=== PATIENT | male | born 1950 | race African-American/Black ===

== ENCOUNTER → 2018-05-06 13:21 | Outpatient (CLI) | payer MEDICARE, MEDICAID, SELFPAY ==
[2018-05-06 14:18] LABS: Basophils # 0.1 K/mm3 (0-0.2); Basophils % 0.5 % (0.1-2.0); Eosinophils # 0.3 K/mm3 (0.0-0.4); Eosinophils % 3.4 % (0.1-12.0); Hematocrit 42.8 % (42.0-52.0); Hemoglobin 12.5 g/dL (14.1-18.0); Lymphocytes # 2.1 K/mm3 (0.7-4.5); Lymphocytes % 21.4 K/mm3 (10-50); Mean Corpuscular HGB Conc 29.2 g/dL (31.8-35.4); Mean Corpuscular Hemoglobin 25.6 pg (27.0-31.2); Mean Corpuscular Volume 87.6 fl (80-94); Mean Platelet Volume 8.6 fl (7.4-10.4); Monocytes # 0.4 K/mm3 (0.1-1.0); Monocytes % 3.6 % (1.7-9.3); Neutrophils # 7.1 K/mm3 (1.8-7.8); Neutrophils % 71.1 % (37.0-80.0); Platelet Count 234 K/mm3 (142-424); Red Blood Count 4.88 M/mm3 (4.60-6.20); Red Cell Distribution Width 13.3 % (11.5-17.5); White Blood Count 9.9 K/mm3 (4.8-10.8)
[2018-05-06 18:02] LABS: Alanine Aminotransferase 37 U/L (12-78); Albumin Level 3.1 gm/dL (3.4-5.0); Albumin/Globulin Ratio 0.8 (1.1-1.8); Alkaline Phosphatase 76 U/L (46-116); Anion Gap 5.1 mEq/L (5-15); Aspartate Amino Transferase 33 U/L (15-37); Bilirubin,Total 0.6 mg/dL (0.2-1.0); Blood Urea Nitrogen 30 mg/dL (7-18); Calcium 8.5 mg/dL (8.5-10.1); Carbon Dioxide 28 mmol/L (21.0-32.0); Chloride 104 mmol/L (98-107); Creatinine,Serum 1.75 mg/dL (0.70-1.30); Estimated Glomerular Filt Rate 39 ml/min (>60); GFR (African American) 47 ML/MIN (>60); Globulin 3.9 gm/dl (1.3-3.2); Glucose 98 mg/dL (74-106); Potassium 4.1 mmoL/L (3.5-5.1); Sodium 133 mmol/L (136-145)
== END ==
PROVIDERS: Visit Provider Internal Medicine Adolescent Medicine
DX: I50.42 Chronic combined systolic (congestive) and diastolic (congestive) heart failure (principal)
CPT/HCPCS: 36415; 80053; 85025

== ENCOUNTER 2018-06-29 07:35 | Inpatient (IN) ==
[2018-06-29 07:50] LABS: Basophils # 0.1 K/mm3 (0-0.2); Basophils % 0.7 % (0.1-2.0); Eosinophils # 0.5 K/mm3 (0.0-0.4); Eosinophils % 3.7 % (0.1-12.0); Hematocrit 40.4 % (42.0-52.0); Hemoglobin 12.3 g/dL (14.1-18.0); Lymphocytes # 6.7 K/mm3 (0.7-4.5); Lymphocytes % 50.9 K/mm3 (10-50); Mean Corpuscular HGB Conc 30.4 g/dL (31.8-35.4); Mean Corpuscular Hemoglobin 28.3 pg (27.0-31.2); Mean Corpuscular Volume 93.1 fl (80-94); Mean Platelet Volume 7.6 fl (7.4-10.4); Monocytes # 0.7 K/mm3 (0.1-1.0); Monocytes % 5.1 % (1.7-9.3); Neutrophils # 5.2 K/mm3 (1.8-7.8); Neutrophils % 39.6 % (37.0-80.0); Platelet Count 192 K/mm3 (142-424); Red Blood Count 4.34 M/mm3 (4.60-6.20); Red Cell Distribution Width 14.4 % (11.5-17.5); White Blood Count 13.2 K/mm3 (4.8-10.8)
[2018-06-29 07:55] LABS: Activated Partial Thrombo Time 28.5 seconds (23.6-34.0); INR 1.01 (0.9-1.1); Prothrombin Time 10.4 seconds (9.4-11.8)
--- NOTE | 2018-06-29 07:57 | Emergency Department Note ---
ED Disposition Clinical Impression: NSTEMI (non-ST elevated myocardial infarction), Lactic acidemia, Hypoxia, Hyperglycemia CHF exacerbation Qualifiers: Heart failure type: systolic Qualified Code(s): I50.23 - Acute on chronic systolic (congestive) heart failure Acute renal failure Qualifiers: Acute renal failure type: unspecified Qualified Code(s): N17.9 - Acute kidney failure, unspecified Disposition: Still a Patient Condition on Discharge: Critical Time of Disposition: 08:40 - Critical Care Critical Care Time: Yes Attestation: On 06/29/18, the high probability of a clinically significant, sudden or life threatening deterioration of the following system(s) required my full and direct attention, intervention and personal management. The time I documented below is in addition to time spent performing reported procedures but includes the following listed in this critical care notation. Total Critical Care Time: 90 Vital system(s) involved:: Circulatory Failure, Respiratory Failure My critical care processes included: Assessment & monitoring of V/S, Initial and Re-exams, Data Review/Interpretation, Coordinating Care, Medication Orders and management, Documentation Medical Decision Making - Medical Records Medical records reviewed: Yes: I reviewed the patient's medical records. - [place] Inquiry Pt receiving controlled substance: No Vital Signs: 06/29/18 07:36 06/29/18 07:45 06/29/18 07:51 Temperature 98.6 F Temperature Source Oral Pulse Rate [Apical] 62 62 55 L Respiratory Rate 30 H 30 H 32 H Blood Pressure [Right Arm] 215/100 199/113 187/103 Blood Pressure Mean [Right Arm] 138 141 131 Blood Pressure Source [Right Arm] Automatic Cuff Automatic Cuff Automatic Cuff Blood Pressure Position [Right Arm] Sitting Sitting Sitting 02 Sat by Pulse Oximetry 68 L 100 100 Oxygen Delivery Method Nasal Cannula Non-Rebreather Non-Rebreather Oxygen Flow Rate (LPM) 3 15 15 06/29/18 08:06 06/29/18 08:30 06/29/18 09:23 Temperature Temperature Source Pulse Rate [Apical] 67 62 60 Respiratory Rate 30 H 30 H 24 Blood Pressure [Right Arm] 166/84 146/70 142/82 Blood Pressure Mean [Right Arm] 111 95 102 Blood Pressure Source [Right Arm] Automatic Cuff Automatic Cuff Automatic Cuff Blood Pressure Position [Right Arm] Sitting Sitting 02 Sat by Pulse Oximetry 97 96 98 Oxygen Delivery Method Non-Rebreather Non-Rebreather Venturi Mask Oxygen Flow Rate (LPM) 06/29/18 09:30 06/29/18 10:00 Temperature Temperature Source Pulse Rate [Apical] 59 L 59 L Respiratory Rate 28 H 22 Blood Pressure [Right Arm] 150/79 147/85 Blood Pressure Mean [Right Arm] 102 105 Blood Pressure Source [Right Arm] Automatic Cuff Automatic Cuff Blood Pressure Position [Right Arm] Sitting Sitting 02 Sat by Pulse Oximetry 98 98 Oxygen Delivery Method Non-Rebreather Venturi Mask Oxygen Flow Rate (LPM) - Lab Data Lab results reviewed: Yes: I reviewed the patient's lab results. Lab Results 06/29/18 07:35: WBC 13.2 H, RBC 4.34 L, Hgb 12.3 L, Hct 40.4 L, MCV 93.1, MCH 28.3, MCHC 30.4 L, RDW 14.4, Plt Count 192, MPV 7.6, Neut % (Auto) 39.6, Lymph % (Auto) 50.9 H, [place] % (Auto) 5.1, Eos % (Auto) 3.7, Baso % (Auto) 0.7, Neut # (Auto) 5.2, Lymph # (Auto) 6.7 H, [place] # (Auto) 0.7, Eos # (Auto) 0.5 H, Baso # (Auto) 0.1, Total Counted 100, Neutrophils % (Manual) 37 L, Lymphocytes % ( Manual) 60 H, Monocytes % (Manual) 3, Platelet Estimate Normal, Helmet Cells 1+ , Acanthocytes (Spur) 1+ 06/29/18 07:35: PT 10.4, INR 1.01, APTT 28.5, D-Dimer 783 H* 06/29/18 07:35: Sodium 141, Potassium 3.5, Chloride 105, Carbon Dioxide 23, Anion Gap 16.5 H, BUN 28 H, Creatinine 1.91 H, Estimated Creat Clear 45, Estimated GFR 35 L, Est GFR ( Amer) 43 L, Glucose 308 H, Calcium 8.2 L, Total Bilirubin 0.3, AST 44 H, ALT 38, Alkaline Phosphatase 95, CK-MB (CK-2) 2.9 , Total Protein 7.0, Albumin 2.9 L, Globulin 4.1 H, Albumin/Globulin Ratio 0.7 L 06/29/18 07:35: B-Natriuretic Peptide 1320 H 06/29/18 07:35: TSH 3.99 H 06/29/18 07:35: Troponin I 0.28 H 06/29/18 07:35: Amylase 134 H, Lipase 237 06/29/18 07:35: Hemoglobin A1c 5.3 06/29/18 07:40: Specimen Source Right radial, O2 % 100%, ABG pH 7.18 L*, ABG pCO2 39.0, ABG pO2 141.1 H, ABG HCO3 14.3 L, ABG Total CO2 15.5 L, ABG O2 Saturation 98, ABG Base Excess -14.0 L, Primitivo Test Acceptable 06/29/18 08:10: Lactate 7.6 H 06/29/18 10:25: Troponin I 0.29 H Result diagrams: 06/29/18 07:35 06/29/18 07:35 Orders (Tests/Meds): ED MEDICATIONS Generic Name Dose Route Start Last Admin Trade Name Freq PRN Reason Stop Dose Admin Aspirin 81 mg 06/30/18 09:00 Aspirin 81mg Chewable Tablet PO 07/30/18 08:59 DAILY [facility] Atorvastatin Calcium 40 mg 06/30/18 09:00 Lipitor 40mg Tablet PO 07/30/18 08:59 DAILY [facility] Carvedilol 12.5 mg 06/30/18 09:00 Coreg 12.5mg Tablet PO 07/30/18 08:59 DAILY [facility] Clopidogrel Bisulfate 75 mg 06/30/18 09:00 Plavix 75mg Tablet PO 07/30/18 08:59 DAILY [facility] Enoxaparin Sodium 80 mg 06/29/18 21:00 Lovenox 80mg/0.8ml Syringe SQ 07/29/18 20:59 Q12H [facility]COM Furosemide 40 mg 06/29/18 21:00 Lasix 40mg/4ml Vial IV 07/29/18 20:59 Q12 [facility]COM Lisinopril 10 mg 06/30/18 09:00 Zestril 10mg Tablet PO 07/30/18 08:59 DAILY [facility] Nitroglycerin 0.4 mg 06/29/18 10:23 Nitrostat 0.4mg Sl Tablet SL 06/30/18 07:36 Q5MINP PRN Chest Pain Potassium Chloride 40 meq 06/29/18 12:30 Klor-Con 20meq Tablet PO 07/29/18 12:29 BID MALCOM Discontinued Medications Generic Name Dose Route Start Last Admin Trade Name Freq PRN Reason Stop Dose Admin Clopidogrel Bisulfate 300 mg 06/29/18 08:33 06/29/18 09:00 Plavix 300mg Tablet PO 06/29/18 08:34 300 mg ONCE ONE Administration Enalaprilat 1.25 mg 06/29/18 07:36 06/29/18 07:37 Vasotec 2.5mg/2ml Vial IV 06/29/18 07:37 1.25 mg ONCE ONE Administration Enoxaparin Sodium 80 mg 06/29/18 08:45 06/29/18 09:19 Lovenox 80mg/0.8ml Syringe SQ 07/29/18 08:44 80 mg Q12H MALCOM Administration Furosemide 40 mg 06/29/18 07:39 06/29/18 07:41 Lasix 40mg/4ml Vial IV 06/29/18 07:40 40 mg ONCE ONE Administration Furosemide 20 mg 06/29/18 08:33 06/29/18 09:00 Lasix 20mg/2ml Vial IV 06/29/18 08:34 20 mg ONCE ONE Administration Nitroglycerin 0.4 mg 06/29/18 07:36 Nitrostat 0.4mg Sl Tablet SL 06/30/18 07:36 Q5MINP PRN Chest Pain ORDERS Category Date Time Status Consult to Cardiology [CONS] Routine Cons 06/29/18 10:23 Active Troponin I Q3H Lab 06/29/18 16:23 Ordered Troponin I Q3H Lab 06/29/18 19:23 Ordered Troponin I Q3H Lab 06/29/18 22:23 Ordered Blood Culture Stat Micro 06/29/18 08:10 Received - Radiology Data #1 Image(s): Chest Image Reviewed: Yes I reviewed the patient's radiology results Preliminary Findings: Abnormal Cardiomegaly, increased interstitial markings consistent with pulmonary edema - ECG Data Tracing #1 I reviewed this ECG and interpreted as documented below: Deep Q waves, consistent with LVH, no acute ischemic changes, heart rate 98 ECG normal with no acute: arrhythmias, ischemia, conduction abnormalities, chamber hypertrophy Normal Sinus Rhythm: Yes - Physician Consults Physician Consulted: Dr Fragoso Time: 08:45 Reason -: Admission, Pt condition Comment/Response: Agreeable with admission, agreeable with management so far. Additional Consult: Judah Crocker , c/o Dr Solomon Reason -: Admission, Pt condition, Cardiology Eval/Care Comment/Response: Agreeable with admission, agreeable with management so far. Judah feels that the elevated troponin must be due to the congestive heart failure, rather than a non-STEMI. He will discuss case in detail with splicer apprentice, Dr. Solomon, in the well will obtain a 2D echo, and provide patient with Lovenox, Plavix, nitrates, beta-elijah coverage. - Reevaluation(s) Time: 08:30 Reevaluation #1: Significantly better, pulse ox on nonrebreather mask is 90%, patient denies any further shortness of breath, able to now diuresis. Twice patient of plan to hospitalize him, and obtain consultation with splicer apprentice. Resp/SOB HPI - General Chief Complaint: Shortness of Breath/Dyspnea Stated Complaint: SOA Time Seen by Provider: 06/29/18 07:36 Mode of Arrival: EMS Source of Information: Patient, Relative, EMS Limitations: No Limitations Description of Symptoms (Recalled from ER Triage Doc. by RN): Pt was found laying in [facility] parking lot. Pt c/o SOA that began lastnight and pain in his chest. - History of Present Illness Patient is a 67-year-old Afro-[place] male that called his daughter around 6: 45 AM complaining with sudden onset of shortness of breath, and requesting her to the to the closest emergency room for medical treatment. By the time his daughter got dressed up and arrived at his apartment the patient was found unresponsive in the parking lot, trying to go to the emergency room on his own. A bystander called the ambulance, who found him unresponsive, hypoxic, brought him to the emergency room. On arrival to the emergency report shows restless, profoundly diaphoretic, pulse ox on room air was 68%, without patient being previously given any oxygen. Aspirin was given on route to the hospital, by EMS personnel. The daughter who arrived later advised that her father has a history of congestive heart failure, and he has been having "a hard time with his blood pressure which has been constantly high". Approximately 2 months ago the patient was transferred from [facility] to because of similar symptoms, and he was diagnosed with CHF at where he was diuresed. Patient has previous heart stents, last one was 2 years ago. MD Complaint: shortness of breath Onset (ago): hour(s) Context: elevated blood glucose Severity: severe Consistency/Duration: constant Relieving factors: oxygen Known history of: congestive heart failure Associated symptoms: orthopnea - Related Data Home oxygen amount: none Home Medications Medication Instructions Recorded Confirmed Aspirin 81 mg PO DAILY 06/29/18 06/29/18 Atorvastatin Calcium [Atorvastatin 40 mg PO DAILY 06/29/18 06/29/18 40mg Tab] Carvedilol [Carvedilol 12.5mg Tab] 12.5 mg PO BID 06/29/18 06/29/18 Furosemide [Furosemide 40MG tAB] 40 mg PO DAILY 06/29/18 06/29/18 Lisinopril [Lisinopril 10mg Tab] 10 mg PO DAILY 06/29/18 06/29/18 Allergies Allergy/AdvReac Type Severity Reaction Status Date / Time No Known Allergies Allergy Verified 04/22/18 06:49 [facility] History I have reviewed the patient's past medical history: Yes - Social History Smoking Status: Current every day smoker Tobacco Type: cigarettes Alcohol Intake: never ROS Obtained: Yes All systems reviewed & no additional complaints, Yes Systems reviewed as appropriate & no additional complaints - Respiratory Respiratory: Yes as per HPI, Yes dyspnea Physical Exam - General General appearance: alert, anxious, in distress (severe) - Head Head exam: atraumatic, normocephalic, normal inspection - Neck Neck exam: Present: normal inspection, full ROM, trachea midline. Absent: meningismus, lymphadenopathy - Chest Chest inspection: Present: normal inspection, symmetric chest wall rise. Absent : tenderness - Respiratory Respiratory exam: Present: respiratory distress (severe), wheezes - Cardiovascular Cardiovascular exam: Present: tachycardia, JVD - Abdominal Exam Abdominal exam: Present: soft, normal bowel sounds. Absent: distention, tenderness, guarding - Extremities Exam Extremities exam: Present: normal inspection, full ROM, normal capillary refill. Absent: calf tenderness - Back Exam Back exam: Present: normal inspection. Absent: tenderness - Neurological Exam Neurological exam: Present: alert, oriented X3, CN II-XII intact, normal gait. Absent: motor sensory deficit - Psychiatric Psychiatric exam: Present: depressed, flat affect - Skin Skin exam: Present: warm, intact, normal color, diaphoresis
[2018-06-29 07:58] LABS: Amylase 134 U/L (25-125); Lipase 237 u/L (73-393)
[2018-06-29 08:03] LABS: ABG HCO3 14.3 mmhg (22.0-26.0); ABG Oxygen Saturation 98 % (90-100); ABG PO2 141.1 mmhg (80-100); ABG TCO2 15.5 mmhg (23-27)
[2018-06-29 08:05] LABS: Allen's Test Acceptable; Oxygen 100% %
[2018-06-29 08:07] LABS: ABG PH 7.18 mmol/L (7.35-7.45)
[2018-06-29 08:09] LABS: Albumin Level 2.9 gm/dL (3.4-5.0); Albumin/Globulin Ratio 0.7 (1.1-1.8); Anion Gap 16.5 mEq/L (5-15); Bilirubin,Total 0.3 mg/dL (0.2-1.0); Calcium 8.2 mg/dL (8.5-10.1); Globulin 4.1 gm/dl (1.3-3.2); Potassium 3.5 mmoL/L (3.5-5.1)
[2018-06-29 08:21] LABS: Lymphocytes % 60 % (10-50); Monocytes % 3 % (2-9); Neutrophils % 37 % (42-76); Total Cells Counted 100
[2018-06-29 08:22] LABS: Helmet Cells 1+
--- NOTE | 2018-06-29 09:27 | Consult Report ---
History of Present Illness Consult date: 06/29/18 Requesting physician: Triston Fragoso Consult reason: shortness of breath Chief complaint: SOA, CHF Additional Medical History:: 1. Coronary artery disease A. History of coronary artery stenting in 2009 and 2014 at [facility] in [place], [place] 2. Malignant hypertension 3. Hyperlipidemia 4. Tobacco use, previously heavy use up to 3 packs per day A. COPD History of present illness: 67-year-old black male with history of coronary artery disease, malignant hypertension and tobacco use presented to the emergency department via EMS for worsening shortness of breath. Patient and his daughter relate 2 weeks of increasing shortness of breath despite increasing Lasix and increasing Coreg therapy for hypertension. Patient relates this a.m. calling his daughter to take him to the hospital for shortness of breath. When she arrived she found him out in the parking lot unresponsive. EMS had already been called and transported patient to the hospital. Patient has improved with supplemental oxygen and IV diuretics. Chest x-ray shows evidence of congestive heart failure with elevated BNP at 1300. Initial troponin is elevated at 0.28 with abnormal EKG showing evidence of LVH with repolarization changes. Similar EKG noted in 04/2018 at which time the patient was transferred to [facility]. Echocardiogram performed during that hospital stay showed a left ventricular ejection fraction of 40%. Patient states he was diuresed and blood pressure medications were adjusted and he was sent home after 2 days. No cardiac catheterization performed. Patient was diagnosed with a non-ST elevation MA secondary to hypertension/hypertensive heart disease and CHF. Cardiology consulted for evaluation recommendations. [facility] History - *Social History Smoking Status: Current every day smoker Tobacco Type: cigarettes Alcohol Intake: never Meds Home Medications Medication Instructions Recorded Confirmed Type Aspirin 81 mg PO DAILY 06/29/18 06/29/18 History Atorvastatin Calcium [Atorvastatin 40 mg PO DAILY 06/29/18 06/29/18 History 40mg Tab] Carvedilol [Carvedilol 12.5mg Tab] 12.5 mg PO BID 06/29/18 06/29/18 History Furosemide [Furosemide 40MG tAB] 40 mg PO DAILY 06/29/18 06/29/18 History Lisinopril [Lisinopril 10mg Tab] 10 mg PO DAILY 06/29/18 06/29/18 History Allergies Allergy/AdvReac Type Severity Reaction Status Date / Time No Known Allergies Allergy Verified 04/22/18 06:49 Review of Systems - *Cardiovascular Reports shortness of breath, Reports shortness of breath with activity, Denies chest pain - *Respiratory Reports shortness of breath, Reports shortness of breath with activity - *Gastrointestinal Denies abdominal pain - *Musculoskeletal Denies back pain Exam Vital signs and Labs for Last 24 Hours: Temp Pulse Resp BP Pulse Ox 98.6 F 62 30 H 146/70 96 06/29/18 07:36 06/29/18 08:30 06/29/18 08:30 06/29/18 08:30 06/29/18 08:30 Laboratory Results - last 24 hr 06/29/18 07:35: WBC 13.2 H, RBC 4.34 L, Hgb 12.3 L, Hct 40.4 L, MCV 93.1, MCH 28.3, MCHC 30.4 L, RDW 14.4, Plt Count 192, MPV 7.6, Neut % (Auto) 39.6, Lymph % (Auto) 50.9 H, [place] % (Auto) 5.1, Eos % (Auto) 3.7, Baso % (Auto) 0.7, Neut # (Auto) 5.2, Lymph # (Auto) 6.7 H, [place] # (Auto) 0.7, Eos # (Auto) 0.5 H, Baso # (Auto) 0.1, Total Counted 100, Neutrophils % (Manual) 37 L, Lymphocytes % ( Manual) 60 H, Monocytes % (Manual) 3, Platelet Estimate Normal, Helmet Cells 1+ , Acanthocytes (Spur) 1+ 06/29/18 07:35: PT 10.4, INR 1.01, APTT 28.5, D-Dimer 783 H* 06/29/18 07:35: Sodium 141, Potassium 3.5, Chloride 105, Carbon Dioxide 23, Anion Gap 16.5 H, BUN 28 H, Creatinine 1.91 H, Estimated Creat Clear 45, Estimated GFR 35 L, Est GFR ( Amer) 43 L, Glucose 308 H, Calcium 8.2 L, Total Bilirubin 0.3, AST 44 H, ALT 38, Alkaline Phosphatase 95, CK-MB (CK-2) 2.9 , Total Protein 7.0, Albumin 2.9 L, Globulin 4.1 H, Albumin/Globulin Ratio 0.7 L 06/29/18 07:35: B-Natriuretic Peptide 1320 H 06/29/18 07:35: TSH 3.99 H 06/29/18 07:35: Troponin I 0.28 H 06/29/18 07:35: Amylase 134 H, Lipase 237 06/29/18 07:35: Hemoglobin A1c 5.3 06/29/18 07:40: Specimen Source Right radial, O2 % 100%, ABG pH 7.18 L*, ABG pCO2 39.0, ABG pO2 141.1 H, ABG HCO3 14.3 L, ABG Total CO2 15.5 L, ABG O2 Saturation 98, ABG Base Excess -14.0 L, Primitivo Test Acceptable 06/29/18 08:10: Lactate 7.6 H I & O for Last 24 hours: Intake & Output 06/26/18 06/27/18 06/28/18 06/29/18 11:59 11:59 11:59 11:59 Weight 190 lb - *Routine Neck Exam Present: JVD. Absent: carotid bruit - *Routine Respiratory Exam Present: decreased breath sounds, rales - *Routine Cardiovascular Exam Present: RRR. Absent: murmur, gallop, rubs - *Routine Abdominal Exam Absent: tenderness, guarding - *Routine Extremities Exam Absent: edema - *Routine Neurological Exam Present: alert, oriented X3, moving all extremities Assessment and Plan (1) CHF exacerbation Current visit: Yes Status: Acute Qualifiers: Heart failure type: systolic Qualified Code(s): I50.23 - Acute on chronic systolic (congestive) heart failure Category: Medical Code(s): I50.9 - Heart failure, unspecified (2) Hypoxia Current visit: Yes Status: Acute Category: Medical Code(s): R09.02 - Hypoxemia (3) Lactic acidemia Current visit: Yes Status: Acute Category: Medical Code(s): E87.2 - Acidosis (4) Elevated troponin Current visit: No Status: Acute Category: Medical Code(s): R74.8 - Abnormal levels of other serum enzymes (5) Hypertensive crisis Current visit: No Status: Acute Category: Medical Code(s): I16.9 - Hypertensive crisis, unspecified - Assessment and plan all Dx Assessment and Plan for all problems:: 1. Acute respiratory distress with hypoxemia and lactic acidemia secondary to congestive heart failure with malignant hypertension. Improved with IV diuretic therapy and oxygen via nonrebreather. 2. Elevated troponin secondary to above. Continue aspirin and Plavix therapy. 3. Known cardiomyopathy felt to be a combination of previous MA and hypertension with LVH. Obtain echocardiogram. 4. Elevated d-dimer, likely secondary to above, continue Lovenox therapy. 5. Further recommendations to follow
--- NOTE | 2018-06-29 10:38 | Pharmacy Consult Notes ---
[facility] Pharmacy VTE Monitoring - Patient Demographics Admission date: 06/29/18 Report Date: 06/29/18 Time: 10:38 Allergies/Adverse Reactions: Patient Allergies No Known Allergies Allergy (Verified 04/22/18 06:49) Height: 1.88 m Weight: 86.183 kg Patient Problems: Current Active Problems CHF exacerbation (Acute) NSTEMI (non-ST elevated myocardial infarction) (Acute) Lactic acidemia (Acute) Hypoxia (Acute) Acute renal failure (Acute) Hyperglycemia (Acute) - VTE Risk Labs: VTE Related Lab Results Hgb 12.3 g/dL (14.1-18.0) L 06/29/18 07:35 Hct 40.4 % (42.0-52.0) L 06/29/18 07:35 Plt Count 192 K/mm3 (142-424) 06/29/18 07:35 PT 10.4 seconds (9.4-11.8) 06/29/18 07:35 INR 1.01 (0.9-1.1) 06/29/18 07:35 APTT 28.5 seconds (23.6-34.0) 06/29/18 07:35 BUN 28 mg/dL (7-18) H 06/29/18 07:35 Creatinine 1.91 mg/dL (0.70-1.30) H 06/29/18 07:35 Estimated Creat Clear 45 mL/min (0-300) 06/29/18 07:35 - Prophylaxis VTE Prophylaxis Ordered?: Yes Types of VTE Prophylaxis: Pharmacological Pharmacologic Type: Enoxaparin - VTE Diagnosis Confirmed Treatment or plan recommended: Continue Current Treatment
--- NOTE | 2018-06-29 14:16 | H&P/Discharge Summary ---
General - General Admission date:: 06/29/18 Discharge date: 06/29/18 *Admission Date: 06/29/18 *Chief complaint: Dyspnea/syncope *History of present illness: 67-year-old -[place] male with history of pulmonary edema with a significant history 2 months ago flash pulmonary edema requiring transfer to tertiary care institution. Excellent recovery and has done well over the past couple of months with diuretics, atorvastatin and lisinopril. Early this morning began to feel suddenly dyspneic, very weak, called his daughter, who by the time she got to his apartment he was collapsed in the parking lot. Brought to the emergency department where he was acidotic, high lactic levels, significant pulmonary edema on exam and by x-ray criteria. Cardiology was consulted and recommended admission here with high-dose IV diuresis and the patient was admitted to stepdown unit at the hospital. [facility] History I have reviewed the patient's past medical history: Yes Medical History: Reports:: Congestive Heart Failure, Hyperlipidemia, Hypertension, Myocardial Infarction Denies:: Cancer, Diabetes Mellitus Type 1, Diabetes Mellitus Type 2, Internal Pacemaker, MRSA Other Surgeries: No: Pacemaker Amputation: No Fractures: No - *Social History Educational Level: Completed High School Smoking Status: Current every day smoker Tobacco Type: cigarettes Alcohol Intake: never Occupational Status: retired, disabled - Psychiatric History Expresses thoughts of harming self/others: None Suicide Plan Description: No Plan Review of Systems - Review of Systems Review of systems:: pertinent systems reviewed and negative unless documented below - Constitutional Denies anorexia, Denies body ache(s), Denies excessive sweating, Denies fever(s) - Eyes Denies blind spots, Denies blurry vision - ENT Denies abnormal hearing - *Cardiovascular Reports shortness of breath, Reports shortness of breath with activity, Reports leg swelling, Denies chest pain, Denies chest pain at rest, Denies excessive sweating, Denies irregular heart rhythm - *Respiratory Reports shortness of breath, Reports shortness of breath with activity, Denies change in phlegm color, Denies chest congestion, Denies cough, Denies coughing up blood, Denies pain on inspiration - *Gastrointestinal Denies abdominal pain, Denies belching, Denies coffee ground vomit, Denies constipation, Denies difficulty swallowing - *Genitourinary Denies difficulty urinating, Denies painful urination - *Neurologic Reports dizziness, Reports weakness - Endocrine Denies cold intolerance, Denies excessive sweating, Denies rapid, pounding, or irregular heartbeat Exam Vital signs and Labs for Last 24 Hours: Temp Pulse Resp BP Pulse Ox 97.8 F 57 L 22 152/87 100 06/29/18 10:40 06/29/18 11:15 06/29/18 10:40 06/29/18 10:40 06/29/18 11:15 Laboratory Results - last 24 hr 06/29/18 07:35: WBC 13.2 H, RBC 4.34 L, Hgb 12.3 L, Hct 40.4 L, MCV 93.1, MCH 28.3, MCHC 30.4 L, RDW 14.4, Plt Count 192, MPV 7.6, Neut % (Auto) 39.6, Lymph % (Auto) 50.9 H, [place] % (Auto) 5.1, Eos % (Auto) 3.7, Baso % (Auto) 0.7, Neut # (Auto) 5.2, Lymph # (Auto) 6.7 H, [place] # (Auto) 0.7, Eos # (Auto) 0.5 H, Baso # (Auto) 0.1, Total Counted 100, Neutrophils % (Manual) 37 L, Lymphocytes % ( Manual) 60 H, Monocytes % (Manual) 3, Platelet Estimate Normal, Helmet Cells 1+ , Acanthocytes (Spur) 1+ 06/29/18 07:35: PT 10.4, INR 1.01, APTT 28.5, D-Dimer 783 H* 06/29/18 07:35: Sodium 141, Potassium 3.5, Chloride 105, Carbon Dioxide 23, Anion Gap 16.5 H, BUN 28 H, Creatinine 1.91 H, Estimated Creat Clear 45, Estimated GFR 35 L, Est GFR ( Amer) 43 L, Glucose 308 H, Calcium 8.2 L, Total Bilirubin 0.3, AST 44 H, ALT 38, Alkaline Phosphatase 95, CK-MB (CK-2) 2.9 , Total Protein 7.0, Albumin 2.9 L, Globulin 4.1 H, Albumin/Globulin Ratio 0.7 L 06/29/18 07:35: B-Natriuretic Peptide 1320 H 06/29/18 07:35: TSH 3.99 H 06/29/18 07:35: Troponin I 0.28 H 06/29/18 07:35: Amylase 134 H, Lipase 237 06/29/18 07:35: Hemoglobin A1c 5.3 06/29/18 07:40: Specimen Source Right radial, O2 % 100%, ABG pH 7.18 L*, ABG pCO2 39.0, ABG pO2 141.1 H, ABG HCO3 14.3 L, ABG Total CO2 15.5 L, ABG O2 Saturation 98, ABG Base Excess -14.0 L, Primitivo Test Acceptable 06/29/18 08:10: Lactate 7.6 H 06/29/18 10:25: Troponin I 0.29 H 06/29/18 12:04: POC Glucose 108 06/29/18 12:27: Lactate 1.3 06/29/18 12:27: Troponin I 0.31 H 06/29/18 12:27: Magnesium 2.2 I & O for Last 24 hours: Intake & Output 06/27/18 06/28/18 06/29/18 06/30/18 11:59 11:59 11:59 11:59 Output Total 600 / 600 Balance -600 / -600 Weight 193 lb 4 oz Narrative: Examination of the telemetry unit after admission and significant diarrhea since revealed a very pleasant black male who is awake, alert, oriented 3. 100% oxygen saturation on 2 L nasal cannula. Heart rate in 60s, sinus rhythm. Blood pressure acceptable. Good distal perfusion and good capillary refill. Heart rate regular with slightly more quiet S1 sound in the S2 sound, no murmurs. Abdomen soft and nontender. Lungs with minimal rhonchi in both bases but improved over recorded ER exam. Wolf catheter draining copious amounts of clear yellow urine. Hospital Course Hospital Course: Patient was admitted, diuresed, significant improvement with aggressive diuresis with improved lactate levels. Markedly improved oxygenation and Echocardiogram showed evidence of mitral valve vegetation with verbal cardiology report from Dr. Tsai. Cardiology service felt that patient, given his significant pulmonary edema and need for workup of this valvular disease would be best served at a tertiary care center and I called and arranged transfer to the cardiac service at with Dr Matthews. Blood cultures were done before transfer. Patient has no history of IV drug abuse, no recent fevers and his white count is currently normal. Results Labs on day of discharge: Labs from last 24 hours 06/29/18 06/29/18 06/29/18 12:27 12:27 12:27 WBC RBC Hgb Hct MCV MCH MCHC RDW Plt Count MPV Neut % (Auto) Lymph % (Auto) Houghton % (Auto) Eos % (Auto) Baso % (Auto) Neut # (Auto) Lymph # (Auto) Houghton # (Auto) Eos # (Auto) Baso # (Auto) Total Counted Neutrophils % (Manual) Lymphocytes % (Manual) Monocytes % (Manual) Platelet Estimate Helmet Cells Acanthocytes (Spur) PT INR APTT D-Dimer Specimen Source O2 % ABG pH ABG pCO2 ABG pO2 ABG HCO3 ABG Total CO2 ABG O2 Saturation ABG Base Excess Primitivo Test Sodium Potassium Chloride Carbon Dioxide Anion Gap BUN Creatinine Estimated Creat Clear Estimated GFR Est GFR ( Amer) Glucose POC Glucose Hemoglobin A1c Lactate 1.3 Calcium Magnesium 2.2 Total Bilirubin AST ALT Alkaline Phosphatase CK-MB (CK-2) Troponin I 0.31 H B-Natriuretic Peptide Total Protein Albumin Globulin Albumin/Globulin Ratio Amylase Lipase TSH 06/29/18 06/29/18 06/29/18 12:04 10:25 08:10 WBC RBC Hgb Hct MCV MCH MCHC RDW Plt Count MPV Neut % (Auto) Lymph % (Auto) [place]oughton % (Auto) Eos % (Auto) Baso % (Auto) Neut # (Auto) Lymph # (Auto) [place]oughton # (Auto) Eos # (Auto) Baso # (Auto) Total Counted Neutrophils % (Manual) Lymphocytes % (Manual) Monocytes % (Manual) Platelet Estimate Helmet Cells Acanthocytes (Spur) PT INR APTT D-Dimer Specimen Source O2 % ABG pH ABG pCO2 ABG pO2 ABG HCO3 ABG Total CO2 ABG O2 Saturation ABG Base Excess Primitivo Test Sodium Potassium Chloride Carbon Dioxide Anion Gap BUN Creatinine Estimated Creat Clear Estimated GFR Est GFR ( Amer) Glucose POC Glucose 108 Hemoglobin A1c Lactate 7.6 H Calcium Magnesium Total Bilirubin AST ALT Alkaline Phosphatase CK-MB (CK-2) Troponin I 0.29 H B-Natriuretic Peptide Total Protein Albumin Globulin Albumin/Globulin Ratio Amylase Lipase TSH 06/29/18 06/29/18 06/29/18 07:40 07:35 07:35 WBC RBC Hgb Hct MCV MCH MCHC RDW Plt Count MPV Neut % (Auto) Lymph % (Auto) [place] % (Auto) Eos % (Auto) Baso % (Auto) Neut # (Auto) Lymph # (Auto) [place]oughton # (Auto) Eos # (Auto) Baso # (Auto) Total Counted Neutrophils % (Manual) Lymphocytes % (Manual) Monocytes % (Manual) Platelet Estimate Helmet Cells Acanthocytes (Spur) PT INR APTT D-Dimer Specimen Source Right radial O2 % 100% ABG pH 7.18 L* ABG pCO2 39.0 ABG pO2 141.1 H ABG HCO3 14.3 L ABG Total CO2 15.5 L ABG O2 Saturation 98 ABG Base Excess -14.0 L Primitivo Test Acceptable Sodium Potassium Chloride Carbon Dioxide Anion Gap BUN Creatinine Estimated Creat Clear Estimated GFR Est GFR ( Amer) Glucose POC Glucose Hemoglobin A1c 5.3 Lactate Calcium Magnesium Total Bilirubin AST ALT Alkaline Phosphatase CK-MB (CK-2) Troponin I B-Natriuretic Peptide Total Protein Albumin Globulin Albumin/Globulin Ratio Amylase 134 H Lipase 237 TSH 06/29/18 06/29/18 06/29/18 07:35 07:35 07:35 WBC RBC Hgb Hct MCV MCH MCHC RDW Plt Count MPV Neut % (Auto) Lymph % (Auto) [place] % (Auto) Eos % (Auto) Baso % (Auto) Neut # (Auto) Lymph # (Auto) [place] # (Auto) Eos # (Auto) Baso # (Auto) Total Counted Neutrophils % (Manual) Lymphocytes % (Manual) Monocytes % (Manual) Platelet Estimate Helmet Cells Acanthocytes (Spur) PT INR APTT D-Dimer Specimen Source O2 % ABG pH ABG pCO2 ABG pO2 ABG HCO3 ABG Total CO2 ABG O2 Saturation ABG Base Excess Primitivo Test Sodium Potassium Chloride Carbon Dioxide Anion Gap BUN Creatinine Estimated Creat Clear Estimated GFR Est GFR ( Amer) Glucose POC Glucose Hemoglobin A1c Lactate Calcium Magnesium Total Bilirubin AST ALT Alkaline Phosphatase CK-MB (CK-2) Troponin I 0.28 H B-Natriuretic Peptide 1320 H Total Protein Albumin Globulin Albumin/Globulin Ratio Amylase Lipase TSH 3.99 H 06/29/18 06/29/18 06/29/18 07:35 07:35 07:35 WBC 13.2 H RBC 4.34 L Hgb 12.3 L Hct 40.4 L MCV 93.1 MCH 28.3 MCHC 30.4 L RDW 14.4 Plt Count 192 MPV 7.6 Neut % (Auto) 39.6 Lymph % (Auto) 50.9 H [place] % (Auto) 5.1 Eos % (Auto) 3.7 Baso % (Auto) 0.7 Neut # (Auto) 5.2 Lymph # (Auto) 6.7 H [place] # (Auto) 0.7 Eos # (Auto) 0.5 H Baso # (Auto) 0.1 Total Counted 100 Neutrophils % (Manual) 37 L Lymphocytes % (Manual) 60 H Monocytes % (Manual) 3 Platelet Estimate Normal Helmet Cells 1+ Acanthocytes (Spur) 1+ PT 10.4 INR 1.01 APTT 28.5 D-Dimer 783 H* Specimen Source O2 % ABG pH ABG pCO2 ABG pO2 ABG HCO3 ABG Total CO2 ABG O2 Saturation ABG Base Excess Primitivo Test Sodium 141 Potassium 3.5 Chloride 105 Carbon Dioxide 23 Anion Gap 16.5 H BUN 28 H Creatinine 1.91 H Estimated Creat Clear 45 Estimated GFR 35 L Est GFR ( Amer) 43 L Glucose 308 H POC Glucose Hemoglobin A1c Lactate Calcium 8.2 L Magnesium Total Bilirubin 0.3 AST 44 H ALT 38 Alkaline Phosphatase 95 CK-MB (CK-2) 2.9 Troponin I B-Natriuretic Peptide Total Protein 7.0 Albumin 2.9 L Globulin 4.1 H Albumin/Globulin Ratio 0.7 L Amylase Lipase TSH DS: Diagnosis - Discharge Diagnosis (1) CHF exacerbation Status: Acute (2) Hypoxia Status: Acute (3) Lactic acidemia Status: Acute (4) Elevated troponin Status: Acute (5) Hypertensive crisis Status: Acute Discharge Medications - Medications for Discharge Home Medication List at Discharge: No Action Lisinopril [Lisinopril 10mg Tab] 10 mg PO DAILY Furosemide [Furosemide 40MG tAB] 40 mg PO DAILY Atorvastatin Calcium [Atorvastatin 40mg Tab] 40 mg PO DAILY Aspirin 81 mg PO DAILY Carvedilol [Carvedilol 12.5mg Tab] 12.5 mg PO BID Disposition Disposition: Xfer Short-Term Hosp
--- NOTE | 2018-06-29 21:26 | Cardiology Report ---
PROCEDURE: 2-D M-mode and color Doppler study INDICATIONS FOR THE TEST: Chest pain COPD Heart Murmur Tobacco Smoking Palpitations Fatigue Syncope Edema Hypertension Diabetes MellitusX Rheumatic Fever SOBXDOE Obesity Hyperlipidemia Family History HD Additional History CHF,NSTEMI PATIENT INFORMATION HEIGHT: 74 WEIGHT:190 GENDER: Male B/P:146/79 2-D/M-MODE INTERPRETATION: 2-D MEASUREMENTS OBSERVED VALUES IN CMS Right Ventricular Dimension (RVDd) 1.9 Interventricular Septum (Thickness)(IVsd) 1.2 Left Ventricular Internal Dimensions(LVIDd) 6.2 Left Ventricular Posterior Wall (Thickness)(LVPWd) 1.2 Aortic Root 4.0 Aortic Cusp Separation 2.0 Left Atrial Dimensions (LAD) 3.0 2D 1. Technically difficult study because of the patient's factor and poor acoustic windows 2. The left atrium is mildly enlarged, left ventricle is normal size, mild concentric left ventricular hypertrophy, visually estimated ejection fraction 40-45%, there is marked hypokinesis involving the mid to distal septum and anteroapical wall. 3. The right atrium and right ventricle are mildly enlarged with normal contractility. 4. The aortic valve is thickened and calcified leaflet continue to display mobility. 5. The mitral valve has dense mitral annular calcification, mitral valve leaflets are minimally thickened. 6. The tricuspid valve is grossly normal. 7. The pulmonic valve is poorly visualized. 8. No significant pericardial effusion noted. DOPPLER INTERROGATION: Doppler interrogation of the aortic, mitral and tricuspid valvular presence of mild aortic, mild mitral and tricuspid regurgitation, tricuspid and jet velocity is insufficient for calculation of the right ventricular systolic pressure, grade 1 diastolic dysfunction seen with tissue Doppler evidence of raised left atrial pressure. CONCLUSION: 1. Normal left ventricular size, mild concentric left ventricular hypertrophy, visually estimated ejection fraction 40-45% with segmental wall motion abnormality described above, grade 1 diastolic dysfunction seen with tissue Doppler evidence of raised left atrial pressure. 2. Thickened and calcified aortic valve without Doppler evidence of aortic stenosis, there is mild aortic insufficiency. 3. Mild mitral and tricuspid regurgitation 4. No significant pericardial effusion noted.
[2018-06-30 01:05] VITALS: BP 176/86
== END 2018-06-30 01:57 | disposition short-term general hospital (02) ==
LOC: ER 07:35 → 2ND 10:03
PROVIDERS: ADMIT Internal Medicine Adolescent Medicine; ATTEND Internal Medicine Adolescent Medicine

== ENCOUNTER → 2019-04-05 13:11 | Outpatient (POV) | payer MEDICARE, MEDICAID, SELFPAY ==
[2019-04-05 14:15] LABS: Basophils % 0.4 % (0.1-2.0); Eosinophils # 0.3 K/mm3 (0.0-0.4); Eosinophils % 4.8 % (0.1-12.0); Hematocrit 37.7 % (42.0-52.0); Hemoglobin 11.3 g/dL (14.1-18.0); Lymphocytes % 31.5 % (10-50); Mean Corpuscular HGB Conc 30.1 g/dL (31.8-35.4); Mean Corpuscular Hemoglobin 25.8 pg (27.0-31.2); Mean Corpuscular Volume 85.7 fl (80-94); Mean Platelet Volume 8.1 fl (7.4-10.4); Monocytes # 0.4 K/mm3 (0.1-1.0); Monocytes % 5.8 % (1.7-9.3); Neutrophils # 3.7 K/mm3 (1.8-7.8); Neutrophils % 57.5 % (37.0-80.0); Platelet Count 179 K/mm3 (142-424); Red Blood Count 4.39 M/mm3 (4.60-6.20); Red Cell Distribution Width 14.3 % (11.5-17.5); White Blood Count 6.5 K/mm3 (4.8-10.8)
[2019-04-05 15:49] LABS: Blood Urea Nitrogen 30 mg/dL (7-18); Carbon Dioxide 23 mmol/L (21.0-32.0); Chloride 106 mmol/L (98-107); Creatinine,Serum 1.79 mg/dL (0.70-1.30); Estimated Glomerular Filt Rate 38 ml/min (>60); Sodium 141 mmol/L (136-145)
[2019-04-05 15:50] LABS: Alanine Aminotransferase 34 U/L (12-78); Albumin Level 3.5 gm/dL (3.4-5.0); Albumin/Globulin Ratio 0.9 (1.1-1.8); Alkaline Phosphatase 69 U/L (46-116); Aspartate Amino Transferase 27 U/L (15-37); Bilirubin,Total 0.6 mg/dL (0.2-1.0); Calcium 8.5 mg/dL (8.5-10.1); Chol/HDL Ratio 2.2 (1-3.5); Cholesterol 127 mg/dL (140-200); GFR (African American) 46 ML/MIN (>60); Globulin 3.9 gm/dl (1.3-3.2); Glucose 89 mg/dL (74-106); HDL Cholesterol 57 mg/dL (27-67); LDL Cholesterol 48 mg/dL (0-130); Total Protein,Serum 7.4 gm/dL (6.4-8.2); Triglycerides 109 mg/dL (30-200); VLDL Cholesterol 22 mg/dL (0-40)
== END ==
PROVIDERS: PCP Internal Medicine Adolescent Medicine; Visit Provider Internal Medicine Adolescent Medicine
DX: I25.10 Atherosclerotic heart disease of native coronary artery without angina pectoris (principal)
CPT/HCPCS: 36415; 80053; 80061; 85025

== ENCOUNTER → 2019-12-27 08:49 | Outpatient (CLI) | payer MEDICARE, MEDICAID, SELFPAY ==
[2019-12-27 09:34] LABS: Basophils # 0.1 K/mm3 (0-0.2); Basophils % 0.8 % (0.1-2.0); Eosinophils # 0.3 K/mm3 (0.0-0.4); Eosinophils % 4.8 % (0.1-12.0); Hematocrit 38.9 % (42.0-52.0); Hemoglobin 11.7 g/dL (14.1-18.0); Lymphocytes # 2.2 K/mm3 (0.7-4.5); Lymphocytes % 33.2 % (10-50); Mean Corpuscular Hemoglobin 25.8 pg (27.0-31.2); Mean Corpuscular Volume 85.9 fl (80-94); Mean Platelet Volume 8.5 fl (7.4-10.4); Monocytes # 0.4 K/mm3 (0.1-1.0); Monocytes % 6.3 % (1.7-9.3); Neutrophils # 3.6 K/mm3 (1.8-7.8); Neutrophils % 54.8 % (37.0-80.0); Platelet Count 173 K/mm3 (142-424); Red Blood Count 4.52 M/mm3 (4.60-6.20); Red Cell Distribution Width 14.2 % (11.5-17.5); White Blood Count 6.5 K/mm3 (4.8-10.8)
[2019-12-27 11:12] LABS: Alanine Aminotransferase 32 U/L (12-78); Albumin Level 3.4 gm/dL (3.4-5.0); Alkaline Phosphatase 59 U/L (46-116); Anion Gap 15.4 mEq/L (5-15); Aspartate Amino Transferase 30 U/L (15-37); Bilirubin,Total 0.5 mg/dL (0.2-1.0); Blood Urea Nitrogen 37 mg/dL (7-18); Calcium 8.6 mg/dL (8.5-10.1); Carbon Dioxide 24 mmol/L (21.0-32.0); Chloride 109 mmol/L (98-107); Chol/HDL Ratio 2.2 (1-3.5); Cholesterol 125 mg/dL (140-200); Creatinine,Serum 2.05 mg/dL (0.70-1.30); Estimated Glomerular Filt Rate 32 ml/min (>60); GFR (African American) 39 ML/MIN (>60); Globulin 3.5 gm/dl (1.3-3.2); Glucose 102 mg/dL (74-106); HDL Cholesterol 57 mg/dL (27-67); LDL Cholesterol 50 mg/dL (0-130); Potassium 4.4 mmoL/L (3.5-5.1); Sodium 144 mmol/L (136-145); Total Protein,Serum 6.9 gm/dL (6.4-8.2); Triglycerides 90 mg/dL (30-200); VLDL Cholesterol 18 mg/dL (0-40)
[2019-12-27 11:46] LABS: Hemoglobin A1C 5.3 % (0.0-7.0)
== END ==
PROVIDERS: Visit Provider Internal Medicine Adolescent Medicine
DX: I25.10 Atherosclerotic heart disease of native coronary artery without angina pectoris (principal); I42.9 Cardiomyopathy, unspecified; I50.42 Chronic combined systolic (congestive) and diastolic (congestive) heart failure; Z79.899 Other long term (current) drug therapy
CPT/HCPCS: 36415; 80053; 80061; 83036; 85025

== ENCOUNTER → 2020-01-05 15:18 | Outpatient (CLI) | payer MEDICARE, MEDICAID, SELFPAY ==
[2020-01-05 17:22] LABS: Anion Gap 11.6 mEq/L (5-15); Blood Urea Nitrogen 28 mg/dl (9-20); Calcium 9.4 mg/dl (8.4-10.2); Carbon Dioxide 23 mmol/L (22.0-30.0); Chloride 109 mmol/L (98-107); Estimated Glomerular Filt Rate 40 ml/min (>60); GFR (African American) 48 ML/MIN (>60); Glucose 92 mg/dl (74-100); Potassium 4.6 mmoL/L (3.5-5.1); Sodium 139 mmol/L (136-145)
== END ==
PROVIDERS: Visit Provider Internal Medicine Adolescent Medicine
DX: I25.10 Atherosclerotic heart disease of native coronary artery without angina pectoris (principal)
CPT/HCPCS: 36415; 80048

== ENCOUNTER → 2020-03-27 12:14 | Outpatient (CLI) | payer MEDICARE, MEDICAID, SELFPAY ==
[2020-03-27 13:36] LABS: Anion Gap 8.8 mEq/L (5-15); Blood Urea Nitrogen 31 mg/dl (9-20); Calcium 9.5 mg/dl (8.4-10.2); Carbon Dioxide 24 mmol/L (22.0-30.0); Chloride 109 mmol/L (98-107); Estimated Glomerular Filt Rate 40 ml/min (>60); GFR (African American) 48 ML/MIN (>60); Glucose 92 mg/dl (74-100); Potassium 4.8 mmoL/L (3.5-5.1); Sodium 137 mmol/L (136-145)
== END ==
PROVIDERS: Visit Provider Internal Medicine Adolescent Medicine
DX: I50.42 Chronic combined systolic (congestive) and diastolic (congestive) heart failure (principal)
CPT/HCPCS: 36415; 80048

== ENCOUNTER → 2020-11-27 10:38 | Outpatient (CLI) | payer MEDICARE, MEDICAID, SELFPAY ==
[2020-11-27 11:29] LABS: Basophils # 0.1 K/mm3 (0-0.2); Basophils % 0.9 % (0.1-2.0); Eosinophils # 0.3 K/mm3 (0.0-0.4); Eosinophils % 4.3 % (0.1-12.0); Hematocrit 41.3 % (42.0-52.0); Hemoglobin 12.5 g/dL (14.1-18.0); Lymphocytes # 2.1 K/mm3 (0.7-4.5); Lymphocytes % 28.6 % (10-50); Mean Corpuscular HGB Conc 30.2 g/dL (31.8-35.4); Mean Corpuscular Hemoglobin 26.3 pg (27.0-31.2); Mean Corpuscular Volume 87.1 fl (80-94); Mean Platelet Volume 9.3 fl (7.4-10.4); Monocytes # 0.5 K/mm3 (0.1-1.0); Monocytes % 6.2 % (1.7-9.3); Neutrophils # 4.5 K/mm3 (1.8-7.8); Platelet Count 185 K/mm3 (142-424); Red Blood Count 4.75 M/mm3 (4.60-6.20); Red Cell Distribution Width 14.9 % (11.5-17.5); White Blood Count 7.5 K/mm3 (4.8-10.8)
[2020-11-27 12:38] LABS: Chloride 106 mmol/L (98-107); Potassium 4.6 mmoL/L (3.5-5.1); Sodium 139 mmol/L (136-145)
[2020-11-27 12:41] LABS: Alanine Aminotransferase 30 U/L (12-78); Albumin Level 4.2 g/dl (3.5-5.0); Albumin/Globulin Ratio 1.1 (1.1-1.8); Alkaline Phosphatase 73 U/L (38-126); Anion Gap 12.6 mEq/L (5-15); Aspartate Amino Transferase 44 U/L (17-59); Bilirubin,Total 0.7 mg/dl (0.2-1.3); Blood Urea Nitrogen 44 mg/dl (9-20); Calcium 9.5 mg/dl (8.4-10.2); Carbon Dioxide 25 mmol/L (22.0-30.0); Cholesterol 142 mg/dl (140-200); Estimated Glomerular Filt Rate 35 ml/min (>60); GFR (African American) 42 ML/MIN (>60); Globulin 3.8 g/dL (1.3-3.2); Glucose 120 mg/dl (74-100); Triglycerides 100 mg/dl (30-150); VLDL Cholesterol 20 mg/dL (0-40)
[2020-11-27 12:42] LABS: Chol/HDL Ratio 2.3 (1-3.5); HDL Cholesterol 62 mg/dl (40-60)
[2020-11-27 12:52] LABS: Direct LDL Cholesterol 40.08 mg/dL (100-129)
== END ==
PROVIDERS: Visit Provider Internal Medicine Adolescent Medicine
DX: I25.10 Atherosclerotic heart disease of native coronary artery without angina pectoris (principal); I50.42 Chronic combined systolic (congestive) and diastolic (congestive) heart failure
CPT/HCPCS: 36415; 80053; 80061; 85025

== ENCOUNTER → 2020-11-30 13:07 | Outpatient (CLI) | payer MEDICARE, MEDICAID, SELFPAY ==
--- NOTE | 2020-11-30 13:11 | CT_ITS ---
PROCEDURE: CT LUNG SCREENING CLINICAL INDICATION: H/O NICOTINE DEPENDENCE Current smoker 30+ pack year smoking history CHF Prior 04/24/16 COMPARISON: CT LDCTLCAS LDCT FOR LUNG CA SCREEN from 04/24/2016 TECHNIQUE: The exam was performed on a GE Light Speed [address] scanner using 2.90 mGy CTDI. A low dose helical CT CHEST was performed on a multi-detector scanner. All CT scans at the facility use one or more dose reduction, viz: automated exposure control, ma/kV adjustment per patient size (including targeted exams where dose is matched to indication, i.e. head), or iterative reconstruction technique. The LDCT was performed in a facility that meets the criteria for the screening program. Data regarding this exam was submitted to ACR which is an approved registry. The order for this exam indicates that it came as a result of a lung cancer screening counseling shard decision-making visit that included all the elements required of such a visit including smoking cessation. The radiologist interpreting this exam meets the CMS criteria for the LDCT lung cancer screening program. The exam is reported using the Lung-RADS classification scale and reported to the ACR registry. NOTE: This study was performed for the specific purposes of lung cancer screening and is not an alternative to diagnostic chest CT. RADIATION DOSE: CTDI vol(CT dose Index-volume) = 2.90mG DLP (Dose Length Product) = 101.07 mGcm FINDINGS: COPD with centrilobular emphysema and scattered areas of scarring. Artifact is present cardiac pacemaker device. There is mild diffuse bronchial thickening. No suspicious pulmonary nodules identified OTHER FINDINGS: Coronary artery calcifications and/or stents degenerative changes thoracic spine. IMPRESSION: Lung-RADS Category 1 Negative Follow-up: Continue annual screening with LDCT in 12 months Dictated by: Primitivo Galan MD 12/04/2020 06:08 Primitivo Galan MD in [place] 12/04/2020 06:08
== END ==
PROVIDERS: PCP Internal Medicine Adolescent Medicine; Visit Provider Internal Medicine Adolescent Medicine
DX: Z87.891 Personal history of nicotine dependence (principal); Z12.2 Encounter for screening for malignant neoplasm of respiratory organs
CPT/HCPCS: 71271

== ENCOUNTER → 2021-04-03 16:48 | Outpatient (CLI) | payer MEDICARE, MEDICAID, SELFPAY ==
[2021-04-03 17:28] LABS: Chloride 109 mmol/L (98-107); Potassium 4.5 mmoL/L (3.5-5.1); Sodium 142 mmol/L (136-145)
[2021-04-03 17:30] LABS: Blood Urea Nitrogen 37 mg/dl (9-20); Estimated Glomerular Filt Rate 35 ml/min (>60); GFR (African American) 42 ML/MIN (>60)
[2021-04-03 17:31] LABS: Anion Gap 9.5 mEq/L (5-15); Carbon Dioxide 28 mmol/L (22.0-30.0); Glucose 114 mg/dl (74-100)
[2021-04-03 17:40] LABS: NT Pro Brain Natriuretic Pep. 1390 pg/mL (0-125)
== END ==
PROVIDERS: Visit Provider Internal Medicine
DX: R06.02 Shortness of breath (principal)
CPT/HCPCS: 36415; 80048; 83880

== ENCOUNTER → 2021-04-20 11:05 | Outpatient (CLI) | payer MEDICARE, MEDICAID, SELFPAY ==
[2021-04-20 12:27] LABS: Chloride 108 mmol/L (98-107); Potassium 4.6 mmoL/L (3.5-5.1); Sodium 144 mmol/L (136-145)
[2021-04-20 12:30] LABS: Anion Gap 15.6 mEq/L (5-15); Blood Urea Nitrogen 25 mg/dl (9-20); Carbon Dioxide 25 mmol/L (22.0-30.0); Estimated Glomerular Filt Rate 37 ml/min (>60); GFR (African American) 45 ML/MIN (>60)
[2021-04-20 12:31] LABS: Calcium 8.9 mg/dl (8.4-10.2); Glucose 105 mg/dl (74-100)
== END ==
PROVIDERS: Visit Provider Internal Medicine
DX: R06.02 Shortness of breath (principal)
CPT/HCPCS: 36415; 80048

== ENCOUNTER → 2021-07-31 15:22 | Outpatient (CLI) | payer MEDICARE, MEDICAID, SELFPAY | PROVIDERS: Visit Provider Student in an Organized Health Care Education/Training Program | DX: Z01.818 Encounter for other preprocedural examination (principal); Z20.822 Contact with and (suspected) exposure to COVID-19; I25.118 Atherosclerotic heart disease of native coronary artery with other forms of angina pectoris | CPT/HCPCS: C9803; U0003; U0005 ==

== ENCOUNTER 2022-02-16 13:19 | Emergency (ER) | payer MEDICARE, MEDICAID, SELFPAY ==
[2022-02-16 13:21] VITALS: BP 114/66; PULSE 73; RESP 16; TEMP 36.6; O2SAT 99; BMI 25.1
--- NOTE | 2022-02-16 13:32 | XR_ITS ---
PROCEDURE INFORMATION: Exam: XR Left Ankle Exam date and time: 02/16/2022 1:38 PM Age: 71 years old Clinical indication: Pain; Ankle and foot; Left; Additional info: Left foot pain- no injury TECHNIQUE: Imaging protocol: XR Left ankle. Views: 3 or more views. COMPARISON: No relevant prior studies available. FINDINGS: Bones/joints: No acute fracture or dislocation. Soft tissues: Normal. IMPRESSION: No acute findings.
--- NOTE | 2022-02-16 13:32 | XR_ITS ---
PROCEDURE INFORMATION: Exam: XR Left Foot Exam date and time: 02/16/2022 1:38 PM Age: 71 years old Clinical indication: Pain; Ankle and foot; Left; Additional info: Left ankle pain- no injury TECHNIQUE: Imaging protocol: XR Left foot. Views: 3 or more views. COMPARISON: No relevant prior studies available. FINDINGS: Bones/joints: No acute fracture. No dislocation. Soft tissues: Normal. IMPRESSION: No acute findings.
[2022-02-16 14:32] VITALS: BP 152/74; PULSE 78; RESP 16; TEMP 36.6; O2SAT 98
--- NOTE | 2022-02-16 14:35 | HMH.EDGENADL ---
ED Disposition Clinical Impression: Gout Disposition: Home, Self-Care Condition on Discharge: Fair Prescriptions: Indomethacin 50 mg PO Q8 5 Days #15 cap Transmission Status: Received by [facility] Referrals: Triston Fragoso MD [Primary Care Provider] - - Critical Care Critical Care Time: No Attestation: On 02/16/22, the high probability of a clinically significant, sudden or life threatening deterioration of the following system(s) required my full and direct attention, intervention and personal management. The time I documented below is in addition to time spent performing reported procedures but includes the following listed in this critical care notation. Medical Decision Making - Medical Records Medical records reviewed: Yes: I reviewed the patient's medical records. - James[place] Inquiry Pt receiving controlled substance: No [place] was queried for this patient: No Vital Signs: 02/16/22 13:21 02/16/22 14:32 Temperature 98 F 98 F Temperature Source Oral Oral Pulse Rate 78 Pulse Rate [Radial] 73 Respiratory Rate 16 16 Blood Pressure 152/74 H Blood Pressure [Right Arm] 114/66 Blood Pressure Mean [Right Arm] 82 Blood Pressure Position Sitting Blood Pressure Position [Right Arm] Sitting 02 Sat by Pulse Oximetry 99 Oxygen Delivery Method Room Air Medical Decision Narrative: Patient is a 71-year-old male with past medical history of bandemia, gout presenting to the ED with left ankle pain. Patient is awake, alert, not in acute distress. Patient is a medically stable, afebrile. Patient's physical exam is remarkable for mild tenderness to palpation of the length of the ankle. Left ankle is without overlying erythema, warmth to touch, tenderness with range of motion. Differential includes was not limited to a gout flare, low concern for septic joint. X-rays are performed and are unremarkable. Patient likely has a gout flareup. Patient is written for indomethacin. Signs of a septic joint are specifically with the patient and family member. They are to return back to the ED if he starts to have significant swelling, redness, fevers, chills, pain with range of motion. General Adult HPI - General Chief complaint: PAIN Stated complaint: LT big toe swelling, rt foot and ankle swelling Time Seen by Provider: 02/16/22 14:35 Mode of Arrival: Wheelchair Limitations: No Limitations Description of Symptoms (Recalled from ER Triage Doc. by RN): to ed per pvt car with c/o lt foot pain starting . pt has a hx of gout - History of Present Illness HPI narrative: Patient is a 71-year-old male with past medical history of hypertension, gout presenting to the ED for left ankle pain. Patient states that approximately a week ago he had pain in his right big toe for which he was prescribed allopurinol. Patient states that this helped with the pain in his right toe which resolved however 2 days ago he started to have pain in his left toe which is extended up to the ankle. Patient states that he is having trouble bearing weight on his left foot. Denies any issues with ambulation. Denies any numbness, weakness. Denies any injuries. Denies any significant swelling of the ankle, redness, warmth. Denies any fevers or chills. - Related Data Home Medications Medication Instructions Recorded Confirmed Aspirin 81 mg PO DAILY 06/29/18 06/29/18 Atorvastatin Calcium [Atorvastatin 40 mg PO DAILY 06/29/18 06/29/18 40mg Tab] Furosemide [Furosemide 20mg Tab*] 20 mg PO DAILY 06/29/18 06/29/18 carvediloL [Carvedilol 12.5mg Tab] 12.5 mg PO BID 06/29/18 06/29/18 lisinopriL [Lisinopril 10mg Tab] 10 mg PO DAILY 06/29/18 06/29/18 Previous Rx's Medication Instructions Recorded Indomethacin 50 mg PO Q8 5 Days #15 cap 02/16/22 Allergies Allergy/AdvReac Type Severity Reaction Status Date / Time No Known Allergies Allergy Verified 04/22/18 06:49 [facility] History - Hepatitis A Screen Drug use
== END 2022-02-16 14:34 | disposition home or self-care (01) ==
PROVIDERS: Emergency Provider Emergency Medicine; PCP Internal Medicine Adolescent Medicine
DX: M25.572 Pain in left ankle and joints of left foot (principal); M79.674 Pain in right toe(s); I11.0 Hypertensive heart disease with heart failure; I50.9 Heart failure, unspecified; I25.2 Old myocardial infarction; E78.5 Hyperlipidemia, unspecified; F17.210 Nicotine dependence, cigarettes, uncomplicated; Z79.52 Long term (current) use of systemic steroids; Z79.899 Other long term (current) drug therapy
CPT/HCPCS: 73610; 73630; 99284

== ENCOUNTER 2022-10-14 10:46 | Outpatient (RCR) | payer MEDICARE, MEDICAID, SELFPAY ==
--- NOTE | 2022-10-14 11:50 | HMH.PTOPEV ---
PT Outpatient Evaluation Rehab PT Outpatient Evaluation Start: 10/14/22 10:52 Freq: Status: Active Protocol: Document 10/14/22 11:37 MARINA (Rec: 10/14/22 11:50 PHOSOPHIE [id number]) E-signed By Jeff Bello, PT Outpatient Therapy Subjective History Subjective History This is the initial PT eval for Higinio Manzanares yoaam who presents with hx of decreased ambulation and increasing general fatigue x several years. He reports having pacemaker implanted ~ 1 yr ago and having steadily decreasing ambulation distance since that time. He reports increasing R hip pain as well, which often results in the R LE 'giving out'. He reports difficulty with sitting in low chairs as well due to the hip pain. He reports he was using a RW previsouly, but it was too difficult due to its heaviness which resulted in fatigue. He now uses a straight cane for ambulation, but is unable to go long distances due to fatigue and R hip Pain. He has PMH of [place], pacemaker, HTN, and gout. TUG test= 17 sec, DGI= Chief Complaint Pain,Stiff,Gives out/Unstable, Weakness Symptom Type Ache,Sharp Symptoms Relieved By Rest/Positioning Symptoms Aggravated By Physical Activity,Walking Prior Functional Limitations None Current Functional Limitations Housework,Sitting,Squatting, Recreation Activity,Walking, Bending/Stooping Symptom Description Intermittent,Activity Dependent Level of pain today (0-10) 0 Pain scale - at its worst (0-10) 10 Hip/Knee Eval MMT left Hip Flexion Strength Grade 4 Good Hip Abduction Strength Grade 4 Good Hip Adduction Strength Grade 4 Good Hip Extension Strength Grade 4 Good Knee Extension Strength Grade 5 Normal Knee Flexion Strength Grade 5 Normal right Hip Flexion Strength Grade 3+ Fair+ Hip Abduction Strength Grade 4 Good Hip Adduction Strength Grade 4 Good Hip Extension Strength Grade 4 Good K
== END 2022-10-14 10:50 | disposition home or self-care (01) ==
LOC: PT 10:46
PROVIDERS: PCP Internal Medicine Adolescent Medicine; Visit Provider Internal Medicine Adolescent Medicine
DX: M25.562 Pain in left knee (principal); R26.9 Unspecified abnormalities of gait and mobility
CPT/HCPCS: 97163

== ENCOUNTER → 2023-01-10 11:45 | Outpatient (CLI) | payer MEDICARE, MEDICAID, SELFPAY ==
[2023-01-10 12:42] LABS: Basophils # 0.1 K/mm3 (0-0.2); Basophils % 1.3 % (0.1-2.0); Eosinophils # 0.4 K/mm3 (0.0-0.4); Eosinophils % 5.1 % (0.1-12.0); Hematocrit 40.2 % (42.0-52.0); Hemoglobin 11.7 g/dL (14.1-18.0); Lymphocytes # 2.3 K/mm3 (0.7-4.5); Lymphocytes % 28.1 % (10-50); Mean Corpuscular HGB Conc 29.1 g/dL (31.8-35.4); Mean Corpuscular Hemoglobin 25.8 pg (27.0-31.2); Mean Corpuscular Volume 88.6 fl (80-94); Mean Platelet Volume 9.7 fl (7.4-10.4); Monocytes # 0.3 K/mm3 (0.1-1.0); Monocytes % 3.6 % (1.7-9.3); Neutrophils % 61.9 % (37.0-80.0); Platelet Count 168 K/mm3 (142-424); Red Blood Count 4.54 M/mm3 (4.60-6.20); Red Cell Distribution Width 15.5 % (11.5-17.5); White Blood Count 8.1 K/mm3 (4.8-10.8)
[2023-01-10 13:19] LABS: Chloride 111 mmol/L (98-107); Potassium 4.8 mmoL/L (3.5-5.1); Sodium 142 mmol/L (136-145)
[2023-01-10 13:21] LABS: Alanine Aminotransferase 25 U/L (12-78); Aspartate Amino Transferase 34 U/L (17-59); Blood Urea Nitrogen 33 mg/dl (9-20); Estimated Glomerular Filt Rate 40 ml/min (>60); GFR (African American) 48 ML/MIN (>60)
[2023-01-10 13:22] LABS: Albumin Level 3.6 g/dl (3.5-5.0); Alkaline Phosphatase 65 U/L (38-126); Anion Gap 10.8 mEq/L (5-15); Bilirubin,Total 0.4 mg/dl (0.2-1.3); Calcium 8.2 mg/dl (8.4-10.2); Carbon Dioxide 25 mmol/L (22.0-30.0); Cholesterol 118 mg/dl (140-200); Globulin 3.6 g/dL (1.3-3.2); Glucose 83 mg/dl (74-100); Total Protein,Serum 7.2 g/dl (6.3-8.2); Triglycerides 95 mg/dl (30-150); VLDL Cholesterol 19 mg/dL (0-40)
[2023-01-10 13:23] LABS: Chol/HDL Ratio 2.7 (1-3.5); HDL Cholesterol 43 mg/dl (40-60)
== END ==
PROVIDERS: PCP Internal Medicine Adolescent Medicine; Visit Provider Internal Medicine Adolescent Medicine
DX: I25.10 Atherosclerotic heart disease of native coronary artery without angina pectoris (principal); I50.42 Chronic combined systolic (congestive) and diastolic (congestive) heart failure; N40.1 Benign prostatic hyperplasia with lower urinary tract symptoms
CPT/HCPCS: 36415; 80053; 80061; 85025

== ENCOUNTER 2023-04-16 06:34 | Observation (INO) | payer MEDICARE, MEDICAID, SELFPAY ==
[2023-04-16] VITALS (10 sets, daily range): BP systolic 143–190; BP diastolic 67–100; PULSE 60–76; RESP 16–20; TEMP 36.6–36.8; O2SAT 96–100; BMI 25.0; BMI 24.5
--- NOTE | 2023-04-16 06:32 | ECG_ITS ---
APPROVED REPORT Exam: Resting ECG HR:74 bpm ECG Measurements Heart Rate 74 AXES OK 90 P 76 QRSd 154 QRS 239 QT 432 T 38 QTc 459 Conclusion ELECTRONIC VENTRICULAR PACEMAKER ABNORMAL RHYTHM ECG UNCONFIRMED REPORT Electronically signed by : Triston Fragoso MD 04/16/2023 17:34:26
--- NOTE | 2023-04-16 06:37 | XR_ITS ---
FINAL REPORT TECHNIQUE: Chest PA & Lateral CLINICAL HISTORY: soa COMPARISON: 06/29/2018 FINDINGS: 2 views of the chest were performed. Mild cardiomegaly is present. Since the prior exam there has been interval placement of a right subclavian biventricular pacer. The mediastinum is within normal limits. Pulmonary vascular congestion is present. There are no pleural effusions. There is no pneumothorax. The bony thorax appears intact. IMPRESSION: Mild cardiomegaly and pulmonary vascular congestion. Reviewed, Interpreted and Dictated by Royal Mares MD Transcribed by Candy Guardado Authenticated and [facility]
--- NOTE | 2023-04-16 06:37 | CT_ITS ---
FINAL REPORT TECHNIQUE: The patient was injected with IV contrast. Axial images were obtained through the chest in a PE protocol. 3-D reconstruction images were also performed. Individualized dose reduction techniques using automated exposure control or adjustment of the MA and/or KV according to patient's size were employed. CLINICAL HISTORY: soa FINDINGS: In the left lower lobe pulmonary artery posterior segmental branch is a small segment of mural filling defect which may be related to old embolus or thrombus. Finding is well seen on images 65-69. There is no evidence of acute pulmonary embolism. There is no aortic dissection. There is no axillary adenopathy. There is no hilar or mediastinal adenopathy. The heart size is normal. There are small bilateral pleural effusions and bibasilar atelectasis. Limited images of the upper abdomen are unremarkable. No suspicious infiltrate or nodule is identified. IMPRESSION: Mural thrombus in the left lower lobe pulmonary artery which may be due to old embolus. No evidence of acute pulmonary embolism. Bilateral pleural effusions. Reviewed, Interpreted and Dictated by Royal Mares MD Transcribed by Kierra Finch Authenticated and [facility]
--- NOTE | 2023-04-16 06:53 | HMH.EDSOB ---
Discharge Plan Disposition Patient Disposition: Still a Patient Prescriptions Prescriptions: No Action atorvastatin 40 MG tablet 40 mg PO DAILY carvedilol 12.5 MG tablet 12.5 mg PO BID lisinopril 10 MG tablet 10 mg PO DAILY aspirin 81 MG tablet,chewable 81 mg PO DAILY furosemide 20 tablet 20 mg PO DAILY indomethacin 50 MG capsule 50 mg PO Q8 5 Days Qty: 15 0RF Clinical Impressions Clinical Impression: Angina at rest, Congestive heart failure, Pacemaker Discharge ED Provider: Madhavi (ED)Donald Resp/SOB HPI <Donald Hendrickson (ED)MD - Last Filed: 04/16/23 08:03> General Chief Complaint: Shortness of Breath/Dyspnea Stated Complaint: SOA Time Seen by Provider: 04/16/23 06:40 Mode of Arrival: EMS Source of Information: Patient, EMS and Medical Record Limitations: No Limitations Description of Symptoms (Recalled from ER Triage Doc. by RN): pt c/o SOA and chest tightness while taking a breath in that started @ 5Am History of Present Illness pt reports up to bathroom about 0530 and dev 20 min episode of chest tightness with assoc sob - has hx of cad with stents in past and has pacemaker/defib placed about 2 yrs ago and had heart cath about 1 yr ago at - no stents - no chest tightness for several yrs - no fever or illness Complaint: shortness of breath and chest pain Onset (ago): hour(s) Severity: moderate Consistency/Duration: now resolved Known history of: other (cad) Related Data Home oxygen amount: none Home Medications Medication Instructions Recorded Confirmed aspirin 81 mg chewable tablet 81 mg PO DAILY HEART HEALTH 06/29/18 06/29/18 atorvastatin 40 mg tablet 40 mg PO DAILY Cholesterol 06/29/18 06/29/18 carvedilol 12.5 mg tablet 12.5 mg PO BID Hypertension 06/29/18 06/29/18 furosemide 20 mg tablet 20 mg PO DAILY DIURETIC 06/29/18 06/29/18 lisinopril 10 mg tablet 10 mg PO DAILY Hypertension 06/29/18 06/29/18 Previous Rx's Medication Instructions Recorded indomethacin 50 mg capsule 50 mg PO Q8 5 days #15 caps 02/16/22 Allergies Allergy/AdvReac Type Severity Reaction Status Date / Time No Known Allergies Allergy Verified 04/22/18 06:49 PFSH <Donald CLEMENTE)MD - Last Filed: 04/16/23 08:03> [facility] Disclaimer: The information contained in this section may have been updated after the patient was seen, as this information can be updated by other users. Social History Smoking Status: Current every day smoker tobacco type: cigarettes alcohol intake: never current occupational status: retired and disabled Travel in the last 8 weeks: None current occupation: retired current occupational exposures/hazards: No caffeine: Yes <Donald CLEMENTE)MD - Last Filed: 04/16/23 08:03> ROS Obtained: Yes All systems reviewed & no additional complaints except as documented Physical Exam <Donald CLEMENTE)MD - Last Filed: 04/16/23 08:03> General General appearance: alert Head Head exam: normocephalic Eye Eye exam: Present PERRL and EOMI ENT ENT exam: Present mucous membranes moist Neck Neck exam: Present trachea midline Respiratory Respiratory exam: Present normal lung sounds bilaterally; Absent respiratory distress Cardiovascular Cardiovascular exam: Present regular rate, systolic murmur and +S4 Abdominal Exam Abdominal exam: Present soft; Absent tenderness Extremities Exam Extremities exam: Present full ROM Neurological Exam Neurological exam: Present alert, oriented X3 and CN II-XII intact; Absent motor sensory deficit Psychiatric Psychiatric exam: Present normal affect Skin Skin exam: Absent rash Medical Decision Making <Donald CLEMENTE)MD - Last Filed: 04/16/23 08:03> Medical Records Medical records reviewed: Yes I reviewed the patient's medical records. [place] Inquiry Pt receiving controlled substance: No Vital Signs: 04/16/23 06:34 04/16/23 07:18 04/16/23 07:00 Temperature 97.8 F Temperature
[2023-04-16 06:59] LABS: Alanine Aminotransferase 31 U/L (12-78); Albumin Level 3.4 g/dl (3.5-5.0); Albumin/Globulin Ratio 0.9 (1.1-1.8); Alkaline Phosphatase 77 U/L (38-126); Anion Gap 10.9 mEq/L (5-15); Aspartate Amino Transferase 64 U/L (17-59); Bilirubin,Total 0.7 mg/dl (0.2-1.3); Blood Urea Nitrogen 35 mg/dl (9-20); Calcium 8.2 mg/dl (8.4-10.2); Carbon Dioxide 24 mmol/L (22.0-30.0); Chloride 113 mmol/L (98-107); Creatinine Clearance Estimated 59 mL/min (50-200); Estimated Glomerular Filt Rate 50 ml/min (>60); GFR (African American) 60 ML/MIN (>60); Globulin 3.7 g/dL (1.3-3.2); Glucose 114 mg/dl (74-100); Potassium 4.9 mmoL/L (3.5-5.1); Sodium 143 mmol/L (136-145); Total Protein,Serum 7.1 g/dl (6.3-8.2)
[2023-04-16 07:03] LABS: Basophils # 0.1 K/mm3 (0-0.2); Basophils % 0.8 % (0.1-2.0); Eosinophils # 0.3 K/mm3 (0.0-0.4); Eosinophils % 3.8 % (0.1-12.0); Hematocrit 38.6 % (42.0-52.0); Hemoglobin 11.6 g/dL (14.1-18.0); Lymphocytes # 2.3 K/mm3 (0.7-4.5); Lymphocytes % 31.1 % (10-50); Mean Corpuscular HGB Conc 30.1 g/dL (31.8-35.4); Mean Corpuscular Hemoglobin 25.6 pg (27.0-31.2); Mean Platelet Volume 8.9 fl (7.4-10.4); Monocytes # 0.4 K/mm3 (0.1-1.0); Monocytes % 5.8 % (1.7-9.3); Neutrophils # 4.4 K/mm3 (1.8-7.8); Neutrophils % 58.5 % (37.0-80.0); Platelet Count 149 K/mm3 (142-424); Red Blood Count 4.54 M/mm3 (4.60-6.20); Red Cell Distribution Width 15.6 % (11.5-17.5); White Blood Count 7.5 K/mm3 (4.8-10.8)
[2023-04-16 07:04] LABS: C-Reactive Protein 4.2 mg/L (0-4)
[2023-04-16 07:11] LABS: NT Pro Brain Natriuretic Pep. 4290 pg/mL (0-125); Troponin I 0.02 ng/ml (0.00-0.034)
[2023-04-16 07:15] LABS: Lactic Acid 1.2 mmol/L (0.7-2.1)
[2023-04-16 07:16] LABS: Procalcitonin 0.076 ng/mL (0.0-2.0)
--- NOTE | 2023-04-16 07:25 | PC.NURSE ---
radiology aware of xray and scan ordered
--- NOTE | 2023-04-16 07:36 | PC.NURSE ---
pt to radiology for xray
--- NOTE | 2023-04-16 07:51 | PC.NURSE ---
back to room
--- NOTE | 2023-04-16 08:13 | PC.NURSE ---
echo at bedside
--- NOTE | 2023-04-16 08:16 | PC.NURSE ---
kyler skinner at
[2023-04-16 08:22] LABS: Erythrocyte Sedimentation Rate 19 mm/hr (0-20)
--- NOTE | 2023-04-16 08:25 | PC.NURSE ---
PERLA SERNA SPEAKING WITH DR MENDOZA
--- NOTE | 2023-04-16 08:27 | PC.NURSE ---
ER SPEAKING WITH PT
--- NOTE | 2023-04-16 08:28 | PC.NURSE ---
COVID SWAB SENT TO LAB
--- NOTE | 2023-04-16 08:29 | PC.NURSE ---
CALLING DR RIVAS FOR POSSIBLE ADMISSION
--- NOTE | 2023-04-16 08:30 | PC.NURSE ---
PERLA SERNA SPEAKING WITH DR RIVAS
[2023-04-16 08:32] LABS: Coronavirus 19, PCR Not Detected (NotDetected); Influenza A, PCR Not Detected (NotDetected); Influenza B, PCR Not Detected (NotDetected)
--- NOTE | 2023-04-16 08:41 | PC.NURSE ---
called placed to care management for bed
--- NOTE | 2023-04-16 08:44 | PC.NURSE ---
Pt assigned to room 202
--- NOTE | 2023-04-16 08:59 | PC.NURSE ---
CARDIOLOGY PA'S AT BEDSIDE
--- NOTE | 2023-04-16 09:06 | PC.NURSE ---
report called to nehal on second floor
--- NOTE | 2023-04-16 09:28 | PC.NURSE ---
arrived byw/c to floor ED
--- NOTE | 2023-04-16 09:33 | EXP.CARD.CON ---
History of Present Illness History of Present Illness Consult date: 04/16/23 Requesting physician: Triston Fragoso Consult reason: chest pain and shortness of breath Chief complaint: soa and chest pain History of present illness: 72-year-old -Sammarinese male with past medical history of pulmonary hypertension, flash pulmonary edema, coronary artery disease with previous stenting in 2009 and 2014, hyperlipidemia, chronic HFrEF s/p AICD, chronic renal insufficiency and HOCM who is managed by cardiology presented to emergency department this morning with complaints of shortness of breath and chest pain. Patient reports has been in his usual state of health until this morning when about 0530 he developed shortness of breath and chest pain which lasted about 20 minutes. Upon presentation to emergency department blood pressure was noted to be 190/100. Initial EKG was V-paced with a rate of 74, no acute ischemic changes were noted. First troponin was negative. Other labs as follow: Hemoglobin 11.6, sodium 143, potassium 4.9, BUN 35, creatinine 1.40, C-reactive protein 4.2, proBNP 4290. CTA of chest was obtained and showed a filling defect in the left lower lobe pulmonary artery which may be due to old embolus. No evidence of acute pulmonary embolism was noted. Bilateral pleural effusions noted. Upon presentation to ER Nitropaste was applied to chest wall and patient reports is feeling much better. Blood pressure has slightly improved. Patient reports he is chest pain-free. Daughter at bedside reports patient is followed closely by Dr. Mackenzie at cardiology and underwent left heart cath last year which revealed chronic occlusions resulting in medical management only. She also reports its not uncommon for patient to have episodes of chest pain along with shortness of breath. She states recently kidney function had declined so primary service had backed off of patient's diuretics and patient had only been receiving Lasix 40 mg once a day as opposed to twice daily. She also reports that patient missed his Lasix yesterday which she believes prompted the increase of symptoms. Daughter requesting if at all possible any procedure needed be done at . Preliminary echo report shows an estimated EF of 45-50%, pulmonary hypertension with an RVSP of 77, diastolic dysfunction, moderate AR, MR and TR. Septal dyssynchrony noted secondary to HOCM. Patient was admitted to hospital for volume overload and angina for cardiology evaluation. [facility] Disclaimer: The information contained in this section may have been updated after the patient was seen, as this information can be updated by other users. Medical History (Updated 04/16/23 @ 10:18 by Vangie Lazo APRN) Angina at rest Gout HLD (hyperlipidemia) HTN (hypertension) Pacemaker Shortness of breath Surgical History (Updated 04/16/23 @ 10:18 by Vangie Lazo APRN) Hx of heart artery stent Family History (Updated 04/16/23 @ 10:01 by Karly Abernathy RN) Other Family history of cancer Social History (Updated 04/16/23 @ 10:01 by Karly Abernathy RN) Smoking Status: Current every day smoker tobacco type: cigarettes alcohol intake: never current occupational status: retired and disabled Travel in the last 8 weeks: None current occupation: retired current occupational exposures/hazards: No caffeine: Yes Review of Systems Review of Systems Review of systems:: pertinent systems reviewed and negative unless documented below *Cardiovascular Cardiovascular: Reports chest pain and Reports dyspnea on exertion *Respiratory Respiratory: Reports dyspnea on exertion Exam Data for Last 24 hours Vital signs and Labs for Last 24 Hours: Temp Pulse Resp BP Pulse Ox 98.2 F 68 18 185/96 H 100 04/16/23 09:31 04/16/23 09:31 04/16/23 09:31 04/16/23 09:31 04/16/23 09:31 Laboratory Results - last 24 hr 04/16/23 06:40: Sodium 143, Potassium 4.9, Chloride 11
[2023-04-16 10:35] LABS: Troponin I 0.03 ng/ml (0.00-0.034)
--- NOTE | 2023-04-16 10:57 | SW/DCPLANNER ---
Patient information has been faxed to [facility] for meal services at home per patient/family request.
--- NOTE | 2023-04-16 11:24 | HMH.PHAINT1 ---
Pharmacy Intervention Comments: MEDICATION RECONCILIATION COMPLETE USING RX BOTTLES AND PHARMACY FILL HISTORY.
[2023-04-16 12:53] LABS: Troponin I 0.03 ng/ml (0.00-0.034)
--- NOTE | 2023-04-16 13:53 | EXP.HP ---
History of Present Illness *Admission Date: 04/16/23 *Reason for visit:: chest pain/dyspnea *History of present illness: 72-year-old male with history of ischemic cardiomyopathy, follows at [facility]. I saw him last week with some sharp substernal pain that was not exertionally related and resolved with supportive care. However, yesterday he had some increasing pressure and felt dyspneic with exertion which felt more like his myocardial issues from previously. He called family to bring him to the emergency department. In the emergency department he felt better after Lasix, initial troponins were negative, but given his symptom complex it was felt prudent to admit him for further evaluation, serial troponins and cardiology was consulted from the ER. [facility] Disclaimer: The information contained in this section may have been updated after the patient was seen, as this information can be updated by other users. Medical History (Updated 04/16/23 @ 10:18 by Vangie Lazo APRN) Angina at rest Gout HLD (hyperlipidemia) HTN (hypertension) Pacemaker Shortness of breath Surgical History (Updated 04/16/23 @ 10:18 by Vangie Lazo APRN) Hx of heart artery stent Family History (Updated 04/16/23 @ 10:01 by Karly Abernathy RN) Family history of cancer Social History (Updated 04/16/23 @ 10:01 by Karly Abernathy RN) Smoking Status: Current every day smoker tobacco type: cigarettes alcohol intake: never current occupational status: retired and disabled Travel in the last 8 weeks: None current occupation: retired current occupational exposures/hazards: No caffeine: Yes Meds Home Medications and Allergies Home Medications Medication Instructions Recorded Confirmed Type atorvastatin 40 mg tablet 40 mg PO DAILY Cholesterol 06/29/18 04/16/23 History amlodipine 10 mg tablet 10 mg PO DAILY High blood pressure 04/16/23 04/16/23 History aspirin 81 mg tablet,delayed 81 mg PO DAILY CAD 04/16/23 04/16/23 History release carvedilol 25 mg tablet 25 mg PO BID High blood pressure 04/16/23 04/16/23 History furosemide 40 mg tablet 40 mg PO BIDL Fluid 04/16/23 04/16/23 History indomethacin 50 mg capsule 50 mg PO TIDP PRN GOUT PAIN 04/16/23 04/16/23 History isosorbide mononitrate 30 mg 60 mg PO DAILY Chest pain 04/16/23 04/16/23 History tablet,extended release 24 hr lisinopril 20 mg tablet 20 mg PO DAILY High blood pressure 04/16/23 04/16/23 History New Prescriptions to Start Prescriptions: Allergies Allergy/AdvReac Type Severity Reaction Status Date / Time No Known Allergies Allergy Verified 04/22/18 06:49 Exam Data for Last 24 hours Vital signs and Labs for Last 24 Hours: Temp Pulse Resp BP Pulse Ox 98.2 F 68 18 185/96 H 100 04/16/23 09:31 04/16/23 09:31 04/16/23 09:31 04/16/23 09:31 04/16/23 09:31 Laboratory Results - last 24 hr 04/16/23 06:40: Sodium 143, Potassium 4.9, Chloride 113 H, Carbon Dioxide 24, Anion Gap 10.9, BUN 35 H, Creatinine 1.40 H, Estimated Creat Clear 59, Estimated GFR 50 L, Est GFR ( Amer) 60, Glucose 114 H, Calcium 8.2 L, Total Bilirubin 0.7, AST 64 H, ALT 31, Alkaline Phosphatase 77, Troponin I 0.02, C-Reactive Protein 4.2 H, NT-Pro-B Natriuret Pep 4290 H, Total Protein 7.1, Albumin 3.4 L, Globulin 3.7 H, Albumin/Globulin Ratio 0.9 L, Procalcitonin 0.076 04/16/23 06:45: WBC 7.5, RBC 4.54 L, Hgb 11.6 L, Hct 38.6 L, MCV 85.0, MCH 25.6 L, MCHC 30.1 L, RDW 15.6, Plt Count 149, MPV 8.9, Neut % (Auto) 58.5, Lymph % (Auto) 31.1, Hendricks % (Auto) 5.8, Eos % (Auto) 3.8, Baso % (Auto) 0.8, Neut # (Auto) 4.4, Lymph # (Auto) 2.3, Hendricks # (Auto) 0.4, Eos # (Auto) 0.3, Baso # (Auto) 0.1, ESR 19 04/16/23 06:45: Lactate 1.2 04/16/23 08:23: SARS-CoV-2 (PCR) Not detected, Influenza A Untype (PCR) Not detected, Influenza Type B (PCR) Not detected 04/16/23 10:00: Troponin I 0.03 04/16/23 12:18: Troponin I 0.03 I & O for Last 24 hours: Intake & Output
[2023-04-17] VITALS: BP 105/55; PULSE 62; PULSE 63; RESP 17; TEMP 36.9; O2SAT 100
[2023-04-17 04:00] VITALS: PULSE 80; TEMP 36.7; BMI 24.7
[2023-04-17 04:14] VITALS: BP 165/54; PULSE 64; RESP 18
--- NOTE | 2023-04-17 04:31 | PC.NURSE ---
Pt. is aox 4, up astol, 90's on RA, 20g R FA SL, full code, CARDIOLOGY CONSULT IN AM.
[2023-04-17 08:00] VITALS: BP 145/83; PULSE 55; PULSE 60; RESP 20; TEMP 37.1; O2SAT 100
--- NOTE | 2023-04-17 08:10 | EXP.DC.SUM ---
General Admission date:: 04/16/23 Discharge date: 04/17/23 HPI HPI HPI: 72-year-old male with history of ischemic cardiomyopathy, follows at [facility]. I saw him last week with some sharp substernal pain that was not exertionally related and resolved with supportive care. However, yesterday he had some increasing pressure and felt dyspneic with exertion which felt more like his myocardial issues from previously. He called family to bring him to the emergency department. In the emergency department he felt better after Lasix, initial troponins were negative, but given his symptom complex it was felt prudent to admit him for further evaluation, serial troponins and cardiology was consulted from the ER. Hospital Course Hospital Course Hospital Course: Patient was admitted, enzymes were negative. Patient was given intravenous Lasix and diuresed briskly and felt much better with resolution of chest pressure and dyspnea. Cardiology was consulted. Appreciate recommendations. Recommended IV Lasix as noted. His creatinine the next morning improved. In talking with his family it turns out he has not been taking his twice daily Lasix as recommended over the past couple of days because of some refill issues. This morning he is doing great, feels great, active, walking around, no chest pressure, pain or dyspnea. Plan we did discharge home today. Continue his twice daily Lasix and we will see him in the office on Friday of next week. At that visit we will consider institution of Jardiance and Aldactone because of his significant heart failure. Exam Data for Last 24 hours Vital signs and Labs for Last 24 Hours: Temp Pulse Resp BP Pulse Ox 98.1 F 64 18 165/54 H 100 04/17/23 04:00 04/17/23 04:14 04/17/23 04:14 04/17/23 04:14 04/17/23 00:00 Laboratory Results - last 24 hr 04/16/23 06:45: ESR 19 04/16/23 08:23: SARS-CoV-2 (PCR) Not detected, Influenza A Untype (PCR) Not detected, Influenza Type B (PCR) Not detected 04/16/23 10:00: Troponin I 0.03 04/16/23 12:18: Troponin I 0.03 I & O for Last 24 hours: Intake & Output 04/14/23 04/15/23 04/16/23 04/17/23 11:59 11:59 11:59 11:59 Intake Total 720 / 720 Output Total 0 / 0 0 / 0 Balance 0 / 0 720 / 720 Weight 191 lb 1 oz 193 lb Constitutional Constitutional: no acute distress *Routine Respiratory Exam Respiratory: Present rhonchi and symmetric chest movement *Routine Cardiovascular Exam Cardiovascular: Present RRR, Normal S1 and Normal S2 *Routine Abdominal Exam Abdominal: Present soft and normoactive bowel sounds; Absent tenderness *Routine Extremities Exam Extremities: Present full ROM and normal capillary refill; Absent edema *Routine Skin Exam Skin: Present intact, dry and warm Detailed Neck Exam: Thyroids Thyroid: Absent bruit Results Data Completed and Pending Labs on day of discharge: Labs from last 24 hours 04/16/23 04/16/23 04/16/23 12:18 10:00 08:23 ESR Troponin I 0.03 0.03 SARS-CoV-2 (PCR) Not detected Influenza A Untype (PCR) Not detected Influenza Type B (PCR) Not detected 04/16/23 06:45 ESR 19 Troponin I SARS-CoV-2 (PCR) Influenza A Untype (PCR) Influenza Type B (PCR) DS: Diagnosis Discharge Diagnosis (1) Heart failure with reduced ejection fraction: Status: Acute Code(s): I50.20 - Unspecified systolic (congestive) heart failure (2) Hypertrophic cardiomyopathy: Status: Acute Code(s): I42.2 - Other hypertrophic cardiomyopathy (3) Pulmonary HTN: Status: Acute Code(s): I27.20 - Pulmonary hypertension, unspecified (4) Hypertensive urgency: Status: Acute Code(s): I16.0 - Hypertensive urgency (5) Chronic renal insufficiency: Status: Acute Code(s): N18.9 - Chronic kidney disease, unspecified (6) Stable angina: Status: Acute Code(s): I20.8 - Other forms of angina pectoris (7) AICD (automatic
--- NOTE | 2023-04-17 08:50 | HMH.PHAINT1 ---
Pharmacy Intervention Comments: Discharge medication counseling complete. Patient was starting no new medications and had no questions abut his current ones.
--- NOTE | 2023-04-17 09:08 | EXP.CARD.PN ---
Subjective Subjective Date: 04/17/23 Time: 09:00 Principal diagnosis: chf exacerbation Interval history: Patient doing well this morning. Denies chest pain or shortness of breath. Adequate urine output noted. A.m. labs reviewed Exam Data for Last 24 hours Vital signs and Labs for Last 24 Hours: Temp Pulse Resp BP Pulse Ox 98.8 F 55 L 20 145/83 H 100 04/17/23 08:00 04/17/23 08:00 04/17/23 08:00 04/17/23 08:00 04/17/23 08:00 Laboratory Results - last 24 hr 04/16/23 10:00: Troponin I 0.03 04/16/23 12:18: Troponin I 0.03 I & O for Last 24 hours: Intake & Output 04/14/23 04/15/23 04/16/23 04/17/23 23:59 23:59 23:59 23:59 Intake Total 720 / 720 Output Total 0 / 0 0 / 0 Balance 720 / 720 0 / 0 Weight 191 lb 1 oz 193 lb Constitutional Constitutional: no acute distress *Routine Respiratory Exam Respiratory: Present CTA bilaterally and symmetric chest movement *Routine Cardiovascular Exam Cardiovascular: Present RRR, Normal S1 and Normal S2 *Routine Abdominal Exam Abdominal: Present soft and normoactive bowel sounds; Absent tenderness *Routine Extremities Exam Extremities: Present full ROM and normal capillary refill; Absent edema *Routine Skin Exam Skin: Present intact, dry and warm Detailed Neck Exam: Thyroids Thyroid: Absent bruit Progress Note: A&P Assessment and plan (1) Heart failure with reduced ejection fraction: Status: Acute (2) Hypertrophic cardiomyopathy: Status: Acute (3) Pulmonary HTN: Status: Acute (4) Hypertensive urgency: Status: Acute (5) Chronic renal insufficiency: Status: Acute (6) Stable angina: Status: Acute (7) AICD (automatic cardioverter/defibrillator) present: Status: Acute (8) CAD (coronary artery disease): Status: Acute Assessment and Plan Assessment and Plan for All Diagnoses:: Acute on chronic HFrEF s/p AICD NYHA III-IV 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 Official read pending. -Patient given Lasix 40 mg IV x1 for diuresis. Start Lasix 40mg IV BID. -Continue carvedilol 25 mg p.o. twice daily and lisinopril 20 mg p.o. daily. Consider addition of aldactone and jardiance later. -Remote device interrogation 02/2023 reviewed, no tachyarrhythmia, greater than 92% BiV paced -No evidence of LVOT obstruction or BRANDEN previously noted. 04/17/2023: Patient diuresed well last night. Reports symptoms have improved, denies chest pain or shortness of breath. 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 daily, atorvastatin 40 mg p.o. daily, carvedilol 25 mg p.o. twice daily. -Resume Imdur 60mg p.o daily. Hypertensive urgency -Resume lisinopril 20 mg p.o. daily, carvedilol 25 mg p.o. twice daily, amlodipine 10 mg p.o. daily -Lasix 40mg IV BID -Continue to monitor 04/17/2023: Improved, systolic in the 140s Chronic renal insufficiency -Creatinine 1.40, baseline 1.7-1.9 Hyperlipidemia -Continue atorvastatin 40mg p.o. daily. CV summary 04/17/2023: Patient CV stable for discharge home. Patient has follow-up with primary service early next week. Patient advised to follow-up with [facility] in the next 1 to 2 weeks for reevaluation.
--- NOTE | 2023-04-18 12:46 | CARE MANAGER ---
Spoke with patient for post-discharge follow-up phone call, no issues noted.
== END 2023-04-17 09:27 | disposition home or self-care (01) ==
LOC: ER 07:58 → 2ND 08:48
PROVIDERS: Admitting Provider Internal Medicine Adolescent Medicine; Emergency Provider Emergency Medicine; PCP Internal Medicine Adolescent Medicine; Visit Provider Internal Medicine Adolescent Medicine
DX: I27.20 Pulmonary hypertension, unspecified (principal); I50.20 Unspecified systolic (congestive) heart failure; I13.0 Hypertensive heart and chronic kidney disease with heart failure and stage 1 through stage 4 chronic kidney disease, or unspecified chronic kidney disease; I25.118 Atherosclerotic heart disease of native coronary artery with other forms of angina pectoris; N18.9 Chronic kidney disease, unspecified; Z95.810 Presence of automatic (implantable) cardiac defibrillator; I25.5 Ischemic cardiomyopathy; F17.210 Nicotine dependence, cigarettes, uncomplicated
CPT/HCPCS: G0378; 36415; 71046; 71275; 80053; 83605; 83880; 84145; 84484; 85025; 85651; 86140; 87636; 93005; 93306; 99285; C9803; Q9967; U0003; U0005

== ENCOUNTER 2024-01-08 09:16 | Outpatient (CLI) | payer MEDICARE, MEDICAID, SELFPAY ==
--- NOTE | 2024-01-08 09:26 | XR_ITS ---
FINAL REPORT CLINICAL HISTORY: right hip pain FINDINGS: RIGHT HIP Two views of the right hip demonstrate no acute fracture or dislocation. There is significant hip joint space narrowing, bilaterally, asymmetrically greater on the right. There is degenerative subchondral cyst formation and sclerosis consistent with advanced changes of osteoarthritis. No soft tissue abnormality is seen. IMPRESSION: Advanced osteoarthritis, right greater than left. Reviewed, Interpreted and Dictated by Royal Mares MD Transcribed by Arabella Roca Authenticated and [facility]
== END 2024-01-08 23:59 ==
LOC: RAD 09:18
PROVIDERS: PCP Internal Medicine Adolescent Medicine; Visit Provider Orthopaedic Surgery
DX: M25.551 Pain in right hip (principal)
CPT/HCPCS: 73502

== ENCOUNTER 2024-01-21 08:38 | Day surgery (SDC) | payer MEDICARE, MEDICAID, SELFPAY ==
[2024-01-19 12:24] VITALS: BMI 24.3
[2024-01-21 08:55] VITALS: BP 125/60; PULSE 60; RESP 18; TEMP 36.6; O2SAT 100
[2024-01-21 09:01] LABS: POC Glucose,Bedside 107 (70-110)
--- NOTE | 2024-01-21 09:13 | P.PNANES_ITS ---
[facility] Disclaimer: The information contained in this section may have been updated after the patient was seen, as this information can be updated by other users. Medical History HLD (hyperlipidemia) HTN (hypertension) Pacemaker Shortness of breath Angina at rest Gout Surgical History Hx of heart artery stent Family History Other Family history of cancer Social History Smoking Status: Current every day smoker tobacco type: cigarettes alcohol intake: never substance use type: denies use current occupational status: retired and disabled Travel in the last 8 weeks: None current occupation: retired current occupational exposures/hazards: No caffeine: Yes [facility] Anesthesia Checklist Patient Identification Patient Identification: Arm Band and Verbal (Name & ) Structural Data Admitted From: Home Planned Operative Procedure/s: Hip injection Consent for Planned Operative Procedure(s) Verified: Yes NPO Status Verified Time NPO: 00:00 Chart Verification Results Verified: CBC and BMP Additional verifications Anesthesia Reactions: No Hx Blood Transfusions: No Blood Transfusion Reaction: No Airway Assessment Mallampati Score:: Class III C-Spine Mobility Assessed: Yes TMJ Mobility Assessed: Yes Dentition: Poor Dentition Neurological Assessment Level of Consciousness: Awake Hx Seizures: No Numbness or tingling in extremities: No Anesthesia Plan Anesthesia Risk discussed: Yes Anesthesia Plan: Verified ASA Class: III Anesthesia Type: MAC
[2024-01-21] MEDS: LIDOCAINE 1% 20ML MDV 20 ML (10:22)
[2024-01-21] MEDS: TRIAMCINOLONE ACET 40MG/ML VIAL 80 MG (10:23)
--- NOTE | 2024-01-21 10:25 | P.OP_ITS ---
Date of procedure: 01/21/24 Pre-op Diagnosis:: Right hip severe osteoarthritis Post-op Diagnosis:: Same Procedure performed:: Right hip injection with arthrogram x-ray guidance for needle placement Surgeon:: Jaciel Brandt DO COM[employer] WINDOW INSTALLER:: Abdiel Pike Anesthesia: MAC and spinal Estimated blood loss (mL): 0 Operative findings:: Severe degenerative changes right hip Operative note:: Patient is identified preoperatively. Right hip marked with yes my initials. Transported operative suite placed upon the radiolucent bed. Sedation was given right hip was prepped and draped normal sterile fashion. Once prepped and draped final operative timeout performed to identify proper patient procedure and extremity. Everyone involved the case agreed. No counter indications to beginning. Right hip was then identified on the x-ray. There was findings of severe degenerative changes of the right hip joint. Needle was directed under direct visualization with the x-ray guidance into the hip capsule. Arthrogram was performed to confirm needle placement within the hip capsule. Once confirmed injection of 80 mg of Kenalog 3 cc of 1% lidocaine injected to the hip. Needle removed Band-Aid placed patient waken sedation taken recovery stable condition Condition: stable Disposition: PACU Complications:: None apparent
[2024-01-21 10:30] VITALS: BP 96/60; PULSE 60; RESP 18; TEMP 36.1; O2SAT 99
--- NOTE | 2024-01-21 10:30 | XR_ITS ---
FINAL REPORT CLINICAL HISTORY: HIP INJECTION IN OR 1.16MGY 6 SEC FLUORO TIME FINDINGS: FLUOROSCOPY LESS THAN 1 HOUR HISTORY: Fluoroscopy guidance. Fluoroscopic guidance was provided for right hip injection. A single spot film was obtained. A total of 6 seconds of fluoroscopy time were used. Total DAP: 1.16 mGy IMPRESSION: As above. Reviewed, Interpreted and Dictated by Chetan Mello III, MD Transcribed by Shasha Randolph Authenticated and [facility]
[2024-01-21 10:40] VITALS: BP 115/68; PULSE 60; RESP 18; O2SAT 99
--- NOTE | 2024-01-21 11:24 | P.PNANES_ITS ---
[facility] Disclaimer: The information contained in this section may have been updated after the patient was seen, as this information can be updated by other users. Medical History HLD (hyperlipidemia) HTN (hypertension) Pacemaker Shortness of breath Angina at rest Gout Surgical History Hx of heart artery stent Family History Other Family history of cancer Social History (Updated 01/21/24 @ 09:13 by Dwayne Quiñonez CRNA) Smoking Status: Current every day smoker tobacco type: cigarettes alcohol intake: never substance use type: denies use current occupational status: retired and disabled Travel in the last 8 weeks: None current occupation: retired current occupational exposures/hazards: No caffeine: Yes [facility] Anesthesia Checklist Patient Identification Patient Identification: Verbal (Name & ) Structural Data Admitted From: Home Planned Operative Procedure/s: r hip injection NPO Status Verified Time NPO: 00:00 Additional verifications Anesthesia Reactions: No Hx Blood Transfusions: No Blood Transfusion Reaction: No Airway Assessment Mallampati Score:: Class II C-Spine Mobility Assessed: Yes TMJ Mobility Assessed: Yes Dentition: Poor Dentition Neurological Assessment Level of Consciousness: Awake, Alert and Appropriate Anesthesia Plan Anesthesia Risk discussed: Yes Anesthesia Plan: Verified ASA Class: III Anesthesia Type: MAC
== END 2024-01-21 10:55 | disposition home or self-care (01) ==
PROVIDERS: PCP Internal Medicine Adolescent Medicine; Visit Provider Orthopaedic Surgery
PROC: (CPT 27093; principal; 2024-01-21 09:30)
DX: M16.11 Unilateral primary osteoarthritis, right hip (principal); F17.210 Nicotine dependence, cigarettes, uncomplicated; Z79.899 Other long term (current) drug therapy; M25.551 Pain in right hip; I10 Essential (primary) hypertension; E78.5 Hyperlipidemia, unspecified
CPT/HCPCS: 27093; 73502; 76000; 82962

== ENCOUNTER 2025-03-17 11:20 | Outpatient (CLI) | payer MEDICARE, MEDICAID, SELFPAY ==
[2025-03-17 11:36] VITALS: BMI 22.1
--- NOTE | 2025-03-17 11:49 | ECG_ITS ---
APPROVED REPORT Exam: Resting ECG HR:71 bpm ECG Measurements Heart Rate 71 AXES QRSd 157 QRS 240 QT 459 T 52 QTc 482 Conclusion ELECTRONIC VENTRICULAR PACEMAKER ABNORMAL RHYTHM ECG UNCONFIRMED REPORT Electronically signed by : Triston Fragoso MD 03/20/2025 08:07:04
[2025-03-17 12:05] LABS: Basophils % 0.5 % (0.1-2.0); Eosinophils # 0.1 Kmm3 (0.0-0.4); Eosinophils % 1.8 % (0.1-12.0); Hematocrit 37.4 % (42.0-52.0); Hemoglobin 11.9 g/dL (14.1-18.0); Lymphocytes # 2.3 K/mm3 (0.7-4.5); Lymphocytes % 31.3 % (10-50); Mean Corpuscular HGB Conc 31.8 g/dL (31.8-35.4); Mean Corpuscular Hemoglobin 25.8 pg (27.0-31.2); Mean Platelet Volume 9.2 fl (7.4-10.4); Monocytes # 0.6 K/mm3 (0.1-1.0); Monocytes % 8.2 % (1.7-9.3); Neutrophils # 4.2 K/mm3 (1.8-7.8); Neutrophils % 57.8 % (37.0-80.0); Nucleated Red Blood Cells # 0.05 10^3/uL; Nucleated Red Blood Cells % 0.7 %; Platelet Count 155 K/mm3 (142-424); Red Blood Count 4.62 M/mm3 (4.60-6.20); Red Cell Distribution Width 15.4 % (11.5-17.5); Red Cell Distribution Width-SD 44.3 fL; White Blood Count 7.3 K/mm3 (4.8-10.8)
[2025-03-17 12:14] LABS: Anion Gap 8.1 mEq/L (5-15); Blood Urea Nitrogen 38 mg/dl (9-20); Calcium 9.2 mg/dl (8.4-10.2); Carbon Dioxide 22 mmol/L (22.0-30.0); Chloride 111 mmol/L (98-107); Creatinine Clearance Estimated 35 mL/min (50-200); Estimated Glomerular Filt Rate 33 ml/min (>60); GFR (African American) 40 ML/MIN (>60); Glucose 90 mg/dl (74-100); Potassium 4.1 mmoL/L (3.5-5.1); Sodium 137 mmol/L (136-145)
== END 2025-03-17 23:59 | disposition home or self-care (01) ==
LOC: PREOP 11:21
PROVIDERS: PCP Internal Medicine Adolescent Medicine; Visit Provider Orthopaedic Surgery
DX: Z01.810 Encounter for preprocedural cardiovascular examination (principal); Z01.812 Encounter for preprocedural laboratory examination; I49.9 Cardiac arrhythmia, unspecified; Z95.0 Presence of cardiac pacemaker
CPT/HCPCS: 80048; 85025; 93005

== ENCOUNTER 2025-03-23 07:16 | Day surgery (SDC) | payer MEDICARE, MEDICAID, SELFPAY ==
--- NOTE | 2025-03-16 13:00 | INFXCTL.NOTE ---
Pt no show for PAT appointment. Attempted to call, no answer, unable to leave message. Dr. Brandt's office notified.
[2025-03-17 14:20] VITALS: BMI 22.1
[2025-03-23 07:57] VITALS: BP 139/77; PULSE 70; RESP 17; TEMP 36.6; O2SAT 100
--- NOTE | 2025-03-23 08:01 | EXP.ANES.CKL ---
[facility] Disclaimer: The information contained in this section may have been updated after the patient was seen, as this information can be updated by other users. Medical History COPD (chronic obstructive pulmonary disease) HLD (hyperlipidemia) HTN (hypertension) Pacemaker Shortness of breath Angina at rest Gout Surgical History History of permanent cardiac pacemaker placement Hx of heart artery stent Family History Other Family history of cancer Family history of heart disease Social History Smoking Status: Current every day smoker tobacco type: cigarettes alcohol intake: never substance use type: denies use current occupational status: retired and disabled Travel in the last 8 weeks?: None current occupation: retired current occupational exposures/hazards: No caffeine: Yes Have you lived/traveled outside [place] in past 30 days?: No Contact w/someone who lives/traveled outside [place] past 30 days?: No Exposure to someone with infectious disease in past 14 days?: No Do you have a fever (greater than 100.4 F or 38 C)?: No Have you tested positive for COVID-19?: No Exposed to someone with COVID-19 in past 14 days?: No Do you have a sore throat?: No Do you have a cough?: No Do you have any weakness?: No Do you have any diarrhea?: No Are you experiencing any unusual bleeding?: No Do you have any muscle aches/pain?: No Do you have any abdominal pain?: No Are you experiencing loss of taste or smell?: No [facility] Anesthesia Checklist Patient Identification Patient Identification: Arm Band Structural Data Admitted From: Home Planned Operative Procedure/s: Right Hip Injection under Fluoroscopy Consent for Planned Operative Procedure(s) Verified: Yes Verified Documents: Surgical Consent and History and Physical NPO Status Verified Time NPO: 00:00 Additional verifications Anesthesia Reactions: No Hx Blood Transfusions: No Blood Transfusion Reaction: No Airway Assessment Mallampati Score:: Class II C-Spine Mobility Assessed: Yes TMJ Mobility Assessed: Yes Dentition: Poor Dentition Neurological Assessment Level of Consciousness: Awake, Alert and Appropriate Anesthesia Plan Anesthesia Risk discussed: Yes Anesthesia Plan: Verified ASA Class: III Anesthesia Type: MAC
[2025-03-23] MEDS: LACTATED RINGERS 1000ML 1,000 ML 100 ML IV (08:03)
[2025-03-23] MEDS: TRIAMCINOLONE ACET 40MG/ML VIAL 80 MG (08:51)
[2025-03-23] MEDS: LIDOCAINE 1% 10ML MDV 10 ML (08:51)
[2025-03-23 08:56] VITALS: BP 92/54; PULSE 71; RESP 17; TEMP 36.2; O2SAT 100
--- NOTE | 2025-03-23 09:02 | XR_ITS ---
FINAL REPORT CLINICAL HISTORY: RIGHT HIP OR INJECTION 1.22 MGY 0.06 FLUORO TIME 5ML ISOVUE 370 FINDINGS: FLUOROSCOPY LESS THAN 1 HOUR HISTORY: Fluoroscopy guidance. Fluoroscopic guidance was provided for right hip OR injection. A single spot film was obtained. A total of 0.06 minutes of fluoroscopy time were used. Total DAP: 1.22 mGy IMPRESSION: As above. Reviewed, Interpreted and Dictated by Dorcas Aguilar MD Transcribed by Shasha Randolph Authenticated and [facility]
[2025-03-23 09:06] VITALS: BP 99/56; PULSE 70; RESP 17; O2SAT 100
[2025-03-23] MEDS: IOPAMIDOL-200 (41%);10ML VIAL 5 ML IV (09:07)
[2025-03-23 09:16] VITALS: BP 95/64; PULSE 72; RESP 17; O2SAT 100
[2025-03-23 09:26] VITALS: BP 98/64; PULSE 70; RESP 17; O2SAT 100
--- NOTE | 2025-03-23 10:27 | EXP.OP.NOTE ---
Date of procedure: 03/23/25 Pre-op Diagnosis:: Severe right hip osteoarthritis Post-op Diagnosis:: Same Procedure performed:: Right hip injection with arthrogram x-ray guidance for needle placement Surgeon:: Jaciel Brandt DO Anesthesia: MAC Estimated blood loss (mL): 0 Operative findings:: See dictation severe osteoarthritis right hip Operative note:: Patient identified preoperatively. Right hip marked with yes my initials. Then transported operative suite the radiolucent table. Patient given sedation. Right hip was then prepped and draped in normal sterile fashion. Once prepped and draped final operative timeout performed to identify proper patient procedure and extremity. Everyone involved in the case agreed. There is no counter indications beginning. X-rays brought into identify the hip joint there was severe degenerative changes with advanced osteoarthritis of the hip. X-ray was utilized and an 18-gauge spinal needle was used to guide towards the hip capsule. Within the hip capsule arthrogram was performed to confirm needle placement intra-articular. Once this was confirmed injection of 80 mg Kenalog 3 cc 1% lidocaine injected into the hip capsule needle was removed Band-Aids placed patient waken from sedation taken recovery in stable condition. Condition: stable Disposition: PACU Complications:: None apparent
[2025-03-23 10:28] LABS: POC Glucose,Bedside 110 (70-110)
== END 2025-03-23 09:32 | disposition home or self-care (01) ==
PROVIDERS: PCP Internal Medicine Adolescent Medicine; Visit Provider Orthopaedic Surgery
PROC: 3E0U3GC Introduction of Other Therapeutic Substance into Joints, Percutaneous Approach (ICD-10-PCS; CPT 20610; principal; 2025-03-23 08:45)
DX: M16.11 Unilateral primary osteoarthritis, right hip (principal)
CPT/HCPCS: 20610; 77002; 73502; 76000; 82962; J2250; J3301; J7120; Q9966